=== PATIENT | female | born 1955 | race Hispanic/Latino ===

== ENCOUNTER 2016-07-19 13:20 | Inpatient (IN) | payer MEDICARE ==
[2016-07-19 16:18] LABS: Alanine Aminotransferase 16 units/L (7-56); Albumin 4.3 g/dL (3.9-5); Albumin/Globulin Ratio 1.4 %; Alkaline Phosphatase 102 units/L (35-129); Anion Gap 17 mmol/L; Bilirubin,Total 0.2 mg/dL (0.1-1.2); Blood Urea Nitrogen 10 mg/dL (7-17); Calcium 8.9 mg/dL (8.4-10.2); Carbon Dioxide 26 mmol/L (22-30); Chloride 100.6 mmol/L (98-107); Glucose 96 mg/dL (65-100); Magnesium 2.4 mg/dL (1.7-2.3); Potassium 3.8 mmol/L (3.6-5.0); Sodium 140 mmol/L (137-145); Total Protein 7.4 g/dL (6.3-8.2)
[2016-07-19 16:46] LABS: Basophils % (Auto) 0.3 % (0.0-1.8); Eosinophils % (Auto) 1.5 % (0.0-4.3); Hematocrit 37.4 % (30.3-42.9); Hemoglobin 12.4 gm/dl (10.1-14.3); Mean Corpuscular HGB Conc 33 % (30-34); Mean Corpuscular Hemoglobin 30 pg (28-32); Mean Corpuscular Volume 90 fl (79-97); Platelet Count 299 K/mm3 (140-440); Red Blood Count 4.15 M/mm3 (3.65-5.03); Red Cell Distribution Width 13.3 % (13.2-15.2); White Blood Count 6.6 K/mm3 (4.5-11.0)
[2016-07-19] MEDS ORDERED: NACL 0.9% 1000 ML 1,000 ML IV ONE (22:09)
--- NOTE | 2016-07-19 22:34 | Emergency Department Report ---
ED Altered Mental Status HPI - General Chief Complaint: Altered Mental Status Stated Complaint: CONFUSED/UNABLE TO STAND/WALK/WEAK/FATIGUE Time Seen by Provider: 07/19/16 21:59 Source: family Mode of arrival: Wheelchair Limitations: Altered Mental Status - History of Present Illness Initial Comments: This is a pleasant 60-year-old female who is a history of intense chorea. She has been with same care provider since January. Most of the history comes from the care provider. The patient is able to provide a reasonable history as well though. Care provider indicates that over the last month patient's had a significant decline both in confusion as well as in ataxia and strength in general. She reports decreased oral intake pre-strength again more ataxia, frequent falls. Caregiver feels that she is not able to rest adequately meet the needs of this patient and feels that she needs residential care. Patient's private physician Dr. Rocha, who suggested patient be brought to the ED for evaluation. The patient to me describes no specific pains. When asked why she doesn't eat she states that she is not hungry. He is unaware of the confusion. But has agreed that she has increased difficulty with walking and with strength in general. MD Complaint: confusion, weakness Onset/Timin -: Gradual, month(s) Severity: moderate Consistency of Symptoms: getting worse Context: unknown Associated Symptoms: denies: chest pain, cough, headaches, nausea/vomiting, shortness of breath, diarrhea - Related Data Allergies Allergy/AdvReac Type Severity Reaction Status Date / Time No Known Allergies Allergy Unverified 07/19/16 14:25 ED Review of Systems ROS: Stated complaint: CONFUSED/UNABLE TO STAND/WALK/WEAK/FATIGUE Other details as noted in HPI Comment: per patient and caregiver. Constitutional: weakness. denies: chills, fever Eyes: denies: eye pain, eye discharge, vision change ENT: denies: ear pain, throat pain Respiratory: denies: cough, shortness of breath, wheezing Cardiovascular: denies: chest pain, palpitations Endocrine: no symptoms reported Gastrointestinal: denies: abdominal pain, nausea, diarrhea Genitourinary: denies: urgency, dysuria, discharge Musculoskeletal: denies: back pain, joint swelling, arthralgia Skin: denies: rash, lesions Neurological: weakness, confusion, abnormal gait. denies: headache, paresthesias Psychiatric: denies: anxiety, depression Hematological/Lymphatic: denies: easy bleeding, easy bruising ED Physical Exam - General Limitations: Altered Mental Status General appearance: alert, in no apparent distress, other (very frail appearing) - Head Head exam: Present: atraumatic, normocephalic - Eye Eye exam: Present: normal appearance, PERRL. Absent: scleral icterus - ENT ENT exam: Present: normal orophraynx, mucous membranes moist, other (bruxism) - Neck Neck exam: Present: normal inspection - Respiratory Respiratory exam: Present: normal lung sounds bilaterally. Absent: respiratory distress, wheezes - Cardiovascular Cardiovascular Exam: Present: regular rate, normal rhythm. Absent: systolic murmur, diastolic murmur, rubs, gallop - GI/Abdominal GI/Abdominal exam: Present: soft, normal bowel sounds. Absent: tenderness, guarding, pulsatile mass - Extremities Exam Extremities exam: Present: normal inspection, other (moves all extremities spontaneously in the bed. Is able to perform finger to nose. Is noted to be shaky while she performs this. Requires assistance to stand up at the side of the bed.). Absent: pedal edema, joint swelling, calf tenderness - Back Exam Back exam: Present: normal inspection - Neurological Exam Neurological exam: Present: alert, oriented X3 - Psychiatric Psychiatric exam: Present: normal affect, normal mood, other (mild mental delay. ) - Skin Skin exam: Present: warm, dry, intact, normal color. Absent: rash ED Course Vital Signs 07/19/16 14:25 Temperature 98.4 F Pulse Rate 111 H Respiratory 20 Rate Blood Pressure 108/75 O2 Sat by Pulse 100 Oximetry - Reevaluation(s) Reevaluation #1: 07/20/16 00:23 Labs are noted here as his CT study. I do not see any acute process that would account for the patient's weakness and confusion and decline. I believe more more likely her condition is due to her general medical condition. Specifically her [place]'s disease. I did speak with Dr. Joyner regarding the patient she is agreeable to admission. My personal opinion is the patient will likely need higher level of care while in the hospital she will likely need some further evaluation and physical therapy as well. Reevaluation #2: 07/19/16 22:34 ECG at 1446 demonstrates sinus rhythm at 88 bpm with normal SC and QRS interval. Normal axis. No acute ST or T-wave abnormalities. Normal ECG. - Lab Data Result diagrams: 07/19/16 15:35 07/19/16 15:35 Lab Results 07/19/16 07/19/16 07/19/16 Range/Units 15:11 15:35 15:35 WBC 6.6 (4.5-11.0) K/mm3 RBC 4.15 (3.65-5.03) M/mm3 Hgb 12.4 (10.1-14.3) gm/dl Hct 37.4 (30.3-42.9) % MCV 90 (79-97) fl MCH 30 (28-32) pg MCHC 33 (30-34) % RDW 13.3 (13.2-15.2) % Plt Count 299 (140-440) K/mm3 Lymph % (Auto) 36.6 H (13.4-35.0) % Prentiss % (Auto) 6.1 (0.0-7.3) % Eos % (Auto) 1.5 (0.0-4.3) % Baso % (Auto) 0.3 (0.0-1.8) % Lymph # 2.4 (1.2-5.4) K/mm3 Prentiss # 0.4 (0.0-0.8) K/mm3 Eos # 0.1 (0.0-0.4) K/mm3 Baso # 0.0 (0.0-0.1) K/mm3 Seg Neutrophils % 55.5 (40.0-70.0) % Seg Neutrophils # 3.6 (1.8-7.7) K/mm3 Sodium 140 (137-145) mmol/L Potassium 3.8 (3.6-5.0) mmol/L Chloride 100.6 (98-107) mmol/L Carbon Dioxide 26 (22-30) mmol/L Anion Gap 17 mmol/L BUN 10 (7-17) mg/dL Creatinine 0.5 L (0.7-1.2) mg/dL Estimated GFR > 60 ml/min BUN/Creatinine Ratio 20.00 % Glucose 96 (65-100) mg/dL Lactic Acid (0.7-2.0) mmol/L Calcium 8.9 (8.4-10.2) mg/dL Magnesium 2.4 H (1.7-2.3) mg/dL Total Bilirubin 0.2 (0.1-1.2) mg/dL AST 25 (5-40) units/L ALT 16 (7-56) units/L Alkaline Phosphatase 102 (35-129) units/L Total Protein 7.4 (6.3-8.2) g/dL Albumin 4.3 (3.9-5) g/dL Albumin/Globulin Ratio 1.4 % TSH (0.270-4.200) mlU/mL Salicylates < 0.3 L (2.8-20.0) mg/dL Acetaminophen (10.0-30.0) ug/mL Plasma/Serum Alcohol (0-0.07) gm% 07/19/16 07/19/16 07/19/16 Range/Units 15:35 15:35 15:35 WBC (4.5-11.0) K/mm3 RBC (3.65-5.03) M/mm3 Hgb (10.1-14.3) gm/dl Hct (30.3-42.9) % MCV (79-97) fl MCH (28-32) pg MCHC (30-34) % RDW (13.2-15.2) % Plt Count (140-440) K/mm3 Lymph % (Auto) (13.4-35.0) % Prentiss % (Auto) (0.0-7.3) % Eos % (Auto) (0.0-4.3) % Baso % (Auto) (0.0-1.8) % Lymph # (1.2-5.4) K/mm3 Prentiss # (0.0-0.8) K/mm3 Eos # (0.0-0.4) K/mm3 Baso # (0.0-0.1) K/mm3 Seg Neutrophils % (40.0-70.0) % Seg Neutrophils # (1.8-7.7) K/mm3 Sodium (137-145) mmol/L Potassium (3.6-5.0) mmol/L Chloride (98-107) mmol/L Carbon Dioxide (22-30) mmol/L Anion Gap mmol/L BUN (7-17) mg/dL Creatinine (0.7-1.2) mg/dL Estimated GFR ml/min BUN/Creatinine Ratio % Glucose (65-100) mg/dL Lactic Acid 1.1 (0.7-2.0) mmol/L Calcium (8.4-10.2) mg/dL Magnesium (1.7-2.3) mg/dL Total Bilirubin (0.1-1.2) mg/dL AST (5-40) units/L ALT (7-56) units/L Alkaline Phosphatase (35-129) units/L Total Protein (6.3-8.2) g/dL Albumin (3.9-5) g/dL Albumin/Globulin Ratio % TSH 5.050 H (0.270-4.200) mlU/mL Salicylates (2.8-20.0) mg/dL Acetaminophen < 15.0 (10.0-30.0) ug/mL Plasma/Serum Alcohol (0-0.07) gm% 07/19/16 Range/Units 15:35 WBC (4.5-11.0) K/mm3 RBC (3.65-5.03) M/mm3 Hgb (10.1-14.3) gm/dl Hct (30.3-42.9) % MCV (79-97) fl MCH (28-32) pg MCHC (30-34) % RDW (13.2-15.2) % Plt Count (140-440) K/mm3 Lymph % (Auto) (13.4-35.0) % Prentiss % (Auto) (0.0-7.3) % Eos % (Auto) (0.0-4.3) % Baso % (Auto) (0.0-1.8) % Lymph # (1.2-5.4) K/mm3 Prentiss # (0.0-0.8) K/mm3 Eos # (0.0-0.4) K/mm3 Baso # (0.0-0.1) K/mm3 Seg Neutrophils % (40.0-70.0) % Seg Neutrophils # (1.8-7.7) K/mm3 Sodium (137-145) mmol/L Potassium (3.6-5.0) mmol/L Chloride (98-107) mmol/L Carbon Dioxide (22-30) mmol/L Anion Gap mmol/L BUN (7-17) mg/dL Creatinine (0.7-1.2) mg/dL Estimated GFR ml/min BUN/Creatinine Ratio % Glucose (65-100) mg/dL Lactic Acid (0.7-2.0) mmol/L Calcium (8.4-10.2) mg/dL Magnesium (1.7-2.3) mg/dL Total Bilirubin (0.1-1.2) mg/dL AST (5-40) units/L ALT (7-56) units/L Alkaline Phosphatase (35-129) units/L Total Protein (6.3-8.2) g/dL Albumin (3.9-5) g/dL Albumin/Globulin Ratio % TSH (0.270-4.200) mlU/mL Salicylates (2.8-20.0) mg/dL Acetaminophen (10.0-30.0) ug/mL Plasma/Serum Alcohol < 0.01 (0-0.07) gm% - Radiology Data Radiology results: report reviewed, image reviewed There is evidence of moderate to severe atrophy and moderate gliosis. No acute intracranial abnormalities are seen. Air fluid level visualized right maxillary sinus suggesting acute sinusitis. Critical care attestation.: If time is entered above; I have spent that time in minutes in the direct care of this critically ill patient, excluding procedure time. 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
--- NOTE | 2016-07-19 23:10 | Cat Scan Report ---
FINAL REPORT PROCEDURE: CT HEAD/BRAIN WO CON TECHNIQUE: Computerized tomography of the head was performed without contrast material. HISTORY: confusion COMPARISON: No prior studies are available for comparison. FINDINGS: Brain: There is no evidence of intracranial hemorrhage. No parenchymal hemorrhage is seen. No mass lesions or mass effect is identified. No abnormal extra-axial fluid collections or masses are seen. There is some decreased density seen in the periventricular white matter without mass effect. This is fairly symmetric and does not exhibit any mass effect consistent with gliosis probably on the basis of microvascular disease or white matter changes of aging. Ventricles: The ventricles, sulcal pattern and fissures are prominent consistent with atrophy. Bones: No evidence of acute fracture. Paranasal sinuses: Moderate-sized air-fluid levels seen in the right maxillary sinus suggesting acute sinusitis. Visualized portions of the paranasal sinuses otherwise appear clear. Mastoid air cells: clear IMPRESSION: There is evidence of moderate to severe atrophy and moderate gliosis. No acute intracranial abnormalities are seen. Air-fluid level visualized right maxillary sinus suggesting acute sinusitis.
[2016-07-20 00:21] LABS: Urine Drugs of Abuse Note Disclamer
[2016-07-20 00:28] LABS: Bilirubin,Urine NEG (Negative); Blood,Urine NEG (Negative); Ketones,Urine NEG (Negative); Leukocyte Esterase,Urine NEG (Negative); Mucus,Urine FEW /HPF; Nitrite,Urine NEG (Negative); Protein,Urine <15 mg/dL mg/dL (Negative); RBC,Urine < 1.0 /HPF (0.0-6.0); Urobilinogen,Urine < 2.0 mg/dL (<2.0)
[2016-07-20] MEDS ORDERED: MILK OF MAGNESIA PO PRN (01:19)
[2016-07-20] MEDS ORDERED: DULCOLAX PR PRN (01:19)
[2016-07-20] MEDS ORDERED: TYLENOL PO PRN (01:19)
[2016-07-20] MEDS ORDERED: ZOFRAN IV PRN (01:19)
--- NOTE | 2016-07-20 02:06 | Admit Criteria Form ---
Admission Criteria Documentation: NEUROLOGY GRG Clinical Indications for Admission to Inpatient Care (Place ' X' for any and all applicable criteria): Hospital admission is needed for appropriate care of the patient because of ANY ONE of the following: [ ]I. New-onset or worsening altered mental status remaining after emergency or observation level care (as appropriate) (9)(10)(11) [ ]II. Severe ORE GRADER infections or inflammatory conditions, including ANY ONE of the following(1)(2)(3): [ ]a) Intracranial abscess [ ]b) Spinal abscess or myelitis [ ]c) Tuberculous or other nonbacterial, nonviral ORE GRADER infection(8) [ ]III. Encephalitis(1)(2)(3) [ ]IV. Status epilepticus or repetitive seizures not controlled with emergent treatment [A] (7)(8) [ ]V. Transient alteration in consciousness with high-risk etiology; examples include (12)(13): [ ]a) Cardiovascular source [ ]b) Cataplexy [ ]. Cerebral aneurysm requiring ANY ONE of the following(14): [ ]a) IV antihypertensives or vasoactive agents [ ]b) Sedation and analgesia for suspected leak [ ]c) Need for external ventricular drainage and cerebral perfusion pressure monitoring [ ]d) Emergent evaluation to determine need for surgical clipping or endovascular coiling by interventional radiology. If surgery is required ( Also use Craniotomy, Supratentorial, for Surgery of Bleeding Intracranial Aneurysm (for bleeding aneurysm) or Craniotomy, Supratentorial (for nonbleeding aneurysm) as appropriate. [ ]VII. Altered mental status that is severe or persistent(16) [ ]VIII New-onset severe neurologic findings requiring inpatient care; examples include: [ ]a) Papilledema [ ]b) Cerebral edema [ ]c) Mass effect on imaging [X ]IX. New-onset severe neurologic symptom requiring inpatient care indicated by ANY ONE of the following: [ ]a) Aphasia(15) [ ]b) Weakness (grade 3 or less) [ ]c) Paralysis (eg, hemiplegia) [ ]d) Spasticity(16) [ X]e) Ataxia(17) [ ]f) Amnesia(18) [ ]g) Involuntary movements(19) [ ]h) Vertigo [ ]i) Other severe neurologic symptom not treatable at alternative level of care (eg, observation care) [ ]X. Guillain-[place] syndrome(20) [ ]XI. Myasthenia gravis crisis or inpatient monitoring need as indicated by ANY ONE of the following(21): [ ]a) Inadequate airway protection [ ]b) Respiratory insufficiency requiring intubation or inpatient. monitoring [ ]c) Progressive dysphagia with failure to thrive [ ]d) Intensive treatment (eg, course of plasmapheresis) with inadequate outpatient situation to monitor patients status [ ]XII. Multiple sclerosis or other acute demyelinating disease requiring inpatient care as indicated by ANY ONE of the following (22)(23): [ ]a) Acute severe deterioration requiring inpatient treatment (eg, IV steroids, plasmapheresis, close observation) [ ]b) Acute complication requiring inpatient care (eg, sepsis, severe decubitus, aspiration) [ ]XIII. Intracranial hypertension (eg, pseudotumor cerebri) requiring inpatient care (eg, acute visual loss, inadequate oral intake) (24) [ ]XIV.Parkinson disease requiring inpatient care (Also use Optimal Recovery Care Criteria or General Recovery Criteria as appropriate) indicated by ANY ONE of the following(25): [ ]a) Infection (eg, aspiration pneumonia) not treatable at alternative level of care [ ]b) Volume depletion not responsive to emergency and observation care treatment (as appropriate) [ ]c) Life-threatening agitation or psychotic behavior not treatable on emergency, observation care, or alternative level (eg, residential) basis [ ]d) Severe medication withdrawal effects (eg, freezing, neuroleptic malignant syndrome) not responsive to emergency and observation care treatment (as appropriate) [ ]e) Other severe manifestation not treatable at alternative level of care [ ]XV.Amyotrophic lateral sclerosis with inpatient care needs as indicated by ANY ONE of the following(26): [ ]a) Acute complications requiring inpatient care (Use Optimal Recovery Care Criteria or General Recovery Criteria as appropriate); examples include: [ ]i) Aspiration pneumonia [ ]ii) Sepsis [ ]b) Dehydration or hypovolemia (not responsive to emergency and observation care treatment as appropriate) AND artificial support desired [ ]c) Inadequate airway protection AND artificial support desired [ ]d) Severe ventilatory insufficiency AND artificial support desired [ ]XVI.Severe myopathy, neuropathy, or other neuromuscular disease as indicated by ANY ONE of the following: [ ]a) New-onset severe diffuse weakness (eg, strength 3/5 or less) [ ]b) Severe dysphagia [ ]c) Dyspnea at rest or with minimal exertion (new) [ ]d) Inadequate airway protection [ ]e) Inadequate ventilation as indicated by ANY ONE of the following : [ ]i) Partial pressure of carbon dioxide greater than 44 mm Hg (5.9 kPa) (new) [ ]ii) Reduced peak expiratory flow rate (new) [ ]iii) Vital capacity less than 50% of predicted ( less than 15 mL/kg) [ ]iv) Peak inspiratory force less negative than -30 cm H20 (-2942 Pa) [ ]XVII.Complications of congenital or degenerative disease (eg, infection, seizures, dehydration, injury) not responsive to emergency and observation care treatment (as appropriate ) [C](16)(29)(30) [ ]XVIII.Suspected or confirmed nerve or muscle toxic injury, including ANY ONE of the following: [ ]a) Rhabdomyolysis(31) [ ]b) Botulism(32) [ ]c) Other severe toxin-induced sign or symptom [ ]XIX. Neurologic trauma requiring inpatient treatment (medical) indicated by ANY ONE of the following(33)(34): [ ]a) Vital signs or neurologic signs more frequently than every 4 hours [ ]b) Hyperosmolar therapy [ ]c) Respiratory monitoring [ ]d) Intracranial pressure monitoring and treatment [ ]e) Stabilization and immobilization device placement (eg, braces, body jacket) [ ]f) Intubation & mechanical ventilation for airway protection or therapeutic hyperventilation [ ]g) Other treatment or monitoring needed that requires inpatient level of care [ ]XX.Complications of neurologic devices (eg, ventricular shunt, neurostimulator) requiring ANY ONE of the following(35)(36): [ ]a) IV antibiotics with monitoring while awaiting culture results [ ]b) Monitoring for hydrocephalus [ ]XXI Vasculitis with ANY ONE of the following(4)(5): [ ]a) Altered mental status [ ]b) Psychosis [ ]c) Seizures [ ]XXII. Neurology condition and ALL of the following: [ ]a) Symptom or finding for which emergency and observation care have failed or are not considered appropriate (Use General Criteria: Observation Care as appropriate) [ ]b) Presence of ANY ONE of the following: [ ]i) A General Admission Criteria [ ]ii A Pediatric General Admission Criteria The original [facility] content created by [facility] has been revised. The portions of the content which have been revised are identified through the use of italic text or in bold, and [facility] has neither reviewed nor approved the modified material. All other unmodified content is copyright [facility] Please see references footnoted in the original [facility] edition 2016 Admission Criteria Met: Yes
--- NOTE | 2016-07-20 03:35 | History and Physical Report ---
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 She has deteriorated, as frequent falls, difficulty ambulating Patient denies chest pain, palpitation, shortness of breath, cough, abdominal pain, hematochezia, dysuria, frequency, focal weakness, dysarthria, fever chills , polydipsia polyuria, hot or cold intolerance, easy bruisability, or rash or bleeding from mucosal membrane, rhinorrhea, epistaxis, earache, tinnitus, blurry vision, eye discharge, anxiety, depression. Other review of systems negative PAST SURGICAL HISTORY: Unknown SOCIAL HISTORY: Denies TOBACCO, drug, alcohol FAMILY HISTORY: Hypertension Medications and Allergies Allergies Allergy/AdvReac Type Severity Reaction Status Date / Time No Known Allergies Allergy Verified 07/20/16 01:41 Home Medications Medication Instructions Recorded Confirmed Last Taken Type Benztropine [Cogentin] 1 mg PO DAILY 07/20/16 07/20/16 07/19/16 History Citalopram Hydrobromide 10 mg PO DAILY 07/20/16 07/20/16 07/19/16 History [Citalopram HBr] Megestrol [Megace] 40 mg PO BID 07/20/16 07/20/16 07/19/16 History Olanzapine [OLANZapine] 0.5 mg PO BID 07/20/16 07/20/16 07/19/16 History clonazePAM 0.5 mg PO DAILY 07/20/16 07/20/16 07/19/16 History clonazePAM 1 mg PO HS 07/20/16 07/20/16 07/19/16 History Acetaminophen [Acetaminophen TAB] 650 mg PO Q4H PRN #30 tablet 07/26/16 Unknown Rx Bisacodyl [Dulcolax suppos] 10 mg AR QDAY PRN #30 supp.rect 07/26/16 Unknown Rx Active Meds: Active Medications Acetaminophen (Tylenol) 650 mg PO Q4H PRN PRN Reason: Pain MILD(1-3)/Fever >100.5/FRANKLIN Bisacodyl (Dulcolax) 10 mg AR QDAY PRN PRN Reason: Constipation unrelieved by MOM Enoxaparin Sodium (Lovenox) 40 mg SUB-Q QDAY EUGENIO Magnesium Hydroxide (Milk Of Magnesia) 30 ml PO Q4H PRN PRN Reason: Constipation Ondansetron HCl (Zofran) 4 mg IV Q8H PRN PRN Reason: N/V unrelieved by Reglan Exam - Physical Exam Narrative exam: Gen. appearance: Patient lying in bed, no apparent distress HEENT: Normocephalic, atraumatic, pupils equally round and reactive to light, extraocular movement intact, and no sclericterus,. No JVD or thyromegaly or nodule,neck supple, no carotid bruit ,mucous membranes moist, no exudate or erythema Heart: S1, S2, regular rate and rhythm Lungs: Clear to auscultation bilaterally, breathing comfortable Abdomen: Positive bowel sounds, nontender, nondistended, no organomegaly Extremity: No edema, cyanosis, clubbing Skin: No rash, nodules, warm, dry Neuro: Oriented 3, cranial nerves II-12 intact, speech is fluent, motor and sensory intact - Constitutional Vitals: Temp Pulse Resp BP Pulse Ox 98.4 F 111 H 18 108/75 98 07/19/16 14:25 07/19/16 14:25 07/19/16 22:00 07/19/16 14:25 07/19/16 22:00 Results - Labs CBC & Chem 7: 07/21/16 05:13 07/21/16 05:13 - Imaging and Cardiology CT Scan - head: report reviewed Assessment and Plan Failure to thrive Pierce's disease Admits medicine Consult neurology, physical therapy Consult case management for placement Start DVT prophylaxis
[2016-07-20] MEDS: LOVENOX SUB-Q SCH (09:39)
--- NOTE | 2016-07-20 11:37 | Event Note ---
Date: 07/20/16 Patient seen and examined. This is a follow-up from an admission earlier this morning. We will continue the plan as outlined in H&P.
--- NOTE | 2016-07-20 17:53 | Consultation ---
History of Present Illness Consult date: 07/20/16 Requesting physician: MAT BLOCK Reason for Consult: Kai's Disease Chief complaint: AMS limits direct Hx. 60 YO F Hx HD not currently on meds who was brought to ED by caregiver for failure to thrive. It is unclear how long her deterioration has been ongoing as she has AMS limiting Hx. She apparently has poor PO intake and falls. There are no clear aggravating, relieving or temporal factors. Severity is such to cause concern for deterioration in health. Past History Past Medical History: other ([place]'s Disease) Past Surgical History: No surgical history Social history: Lives alone Family history: no significant family history Medications and Allergies Allergies Allergy/AdvReac Type Severity Reaction Status Date / Time No Known Allergies Allergy Verified 07/20/16 01:41 Home Medications Medication Instructions Recorded Confirmed Last Taken Type Benztropine [Cogentin] 1 mg PO DAILY 07/20/16 07/20/16 07/19/16 History Citalopram Hydrobromide 10 mg PO DAILY 07/20/16 07/20/16 07/19/16 History [Citalopram HBr] Megestrol [Megace] 40 mg PO BID 07/20/16 07/20/16 07/19/16 History Olanzapine [OLANZapine] 0.5 mg PO BID 07/20/16 07/20/16 07/19/16 History clonazePAM 0.5 mg PO DAILY 07/20/16 07/20/16 07/19/16 History clonazePAM 1 mg PO HS 07/20/16 07/20/16 07/19/16 History Active Meds: Active Medications Acetaminophen (Tylenol) 650 mg PO Q4H PRN PRN Reason: Pain MILD(1-3)/Fever >100.5/FRANKLIN Bisacodyl (Dulcolax) 10 mg MA QDAY PRN PRN Reason: Constipation unrelieved by MOM Enoxaparin Sodium (Lovenox) 40 mg SUB-Q QDAY EUGENIO Last Admin: 07/20/16 09:39 Dose: 40 mg Magnesium Hydroxide (Milk Of Magnesia) 30 ml PO Q4H PRN PRN Reason: Constipation Ondansetron HCl (Zofran) 4 mg IV Q8H PRN PRN Reason: N/V unrelieved by Reglan Review of Systems ROS unobtainable: due to mental status Physical Examination - Vital Signs Vital Signs: Vital Signs Temp Pulse Resp BP Pulse Ox 98.4 F 111 H 20 108/75 100 07/19/16 14:25 07/19/16 14:25 07/19/16 14:25 07/19/16 14:25 07/19/16 14:25 - Constitutional General appearance: chronically ill - EENT EENT: Present: ATNC, PERRL, mucous membranes dry, hearing intact - Respiratory Respiratory: Present: chest non-tender, normal breath sounds, no respiratory distress - Cardiovascular Cardiovascular: Present: regular rate Extremities: Present: no peripheral edema bilatateraly, no clubbing, cyanosis, no inflammation, no ischemia or petechiae - Gastrointestinal Gastrointestinal: Present: normoactive bowel sounds, non-distended - Integumentary Integumentary: Present: normal - Neurologic Cranial nerve examination: PERRL, EOMI, VFF, V1/V2/V3 grossly intact, face symmetric, tongue midline, intact, intact shoulder shrug, Intact Vestibulo- ocular r, intact corneal reflex Speech examination: other (dysarthria) Sensorimotor examination: rigidity, chorea Motor examination - right side: 4/5: biceps, triceps, wrist flexion, wrist extension, technical service specialist, hip flexors, knee extensors, dorsiflexion, toe extension (EHL) , plantarflexion Motor examination - left side: 4/5: biceps, triceps, wrist flexion, wrist extension, technical service specialist, hip flexors, knee extensors, dorsiflexion, toe extension (EHL) , plantarflexion Detailed sensory examination: intact, light touch Reflex and gait examination: Babinski's sign Cerebellar examination: ataxia, dysmetria, dysdiadochokinesia - Musculoskeletal Musculoskeletal: Present: no fluid collection, no pain, normal range of motion - Additional Exam Additional Exam: awake, alert, oriented to name, ? 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 She appears to have classic HD symptoms. Neuro exam otherwise nonfocal and CTH nonacute global atrophy/gliosis. I recommend toxic metabolic infectious work up to correct any reversible causes. TSH ekevated but T4 normal. Recs: 1. Will defer further neurologic w/u w/ regard to radiographic imaging-MRI Brain/Spine, EEG or LP @ this time. CTH reviewed and non-acute findings. 2. Check serum Vit B12/Ammonia and correct as necessary 3. Cont Infectious work up/medical management for UTI, PNA, cellulitis, bacteremia, etc. 4. Avoid hyponatremia, hypo/hyper-calcemia, hypo/hyperglycemia, acidosis, hypoxia/hypoxemia, hypercarbia/hypercapnia 5. Avoid institution of any psychoactive medications (e.g. antihistamines, anticholinergics, BZD, hypnotics, opiates) as able unless low doses of low potency antipsychotic needed for behavioral issues complicating medical care 6. Cont home meds-there is no neurologic indication to change 7. We can revisit as needed. 8. Pt can follow up with outpt neurologist as indicated.
[2016-07-21 06:27] LABS: Basophils % (Auto) 0.2 % (0.0-1.8); Eosinophils % (Auto) 3.9 % (0.0-4.3); Hemoglobin 10.7 gm/dl (10.1-14.3); Mean Corpuscular HGB Conc 33 % (30-34); Mean Corpuscular Hemoglobin 30 pg (28-32); Mean Corpuscular Volume 91 fl (79-97); Platelet Count 255 K/mm3 (140-440); Red Blood Count 3.51 M/mm3 (3.65-5.03); Red Cell Distribution Width 13.3 % (13.2-15.2); White Blood Count 5.8 K/mm3 (4.5-11.0)
[2016-07-21 06:46] LABS: Anion Gap 14 mmol/L; Blood Urea Nitrogen 6 mg/dL (7-17); Calcium 8.4 mg/dL (8.4-10.2); Carbon Dioxide 24 mmol/L (22-30); Chloride 108.2 mmol/L (98-107); Glucose 81 mg/dL (65-100); Potassium 3.9 mmol/L (3.6-5.0); Sodium 142 mmol/L (137-145)
[2016-07-21] MEDS: LOVENOX SUB-Q SCH (09:50)
--- NOTE | 2016-07-21 11:50 | Progress Note ---
Assessment and Plan Assessment and plan: 1. Acute encephalopathy. Present on admission. Resolved. 2. Kai's disease. Supportive care. 3. Adult failure to thrive/deconditioning/disability. PT evaluation 4. Disposition. Patient awaiting placement. History Interval history: No new issues overnight. No complaint of chest pain or shortness of breath. Hospitalist Physical - Constitutional Vitals: Temp Pulse Resp BP Pulse Ox 98.9 F 69 20 92/53 95 07/21/16 07:40 07/21/16 07:40 07/21/16 07:40 07/21/16 07:40 07/21/16 08:48 General appearance: Present: no acute distress, well-nourished - EENT Eyes: Present: PERRL, EOM intact ENT: hearing intact, clear oral mucosa, dentition normal - Neck Neck: Present: supple, normal ROM - Respiratory Respiratory effort: normal Respiratory: bilateral: CTA - Cardiovascular Rhythm: regular Heart Sounds: Present: S1 & S2. Absent: gallop, rub - Extremities Extremities: no ischemia, No edema, Full ROM - Abdominal General gastrointestinal: soft, non-tender, non-distended, normal bowel sounds - Integumentary Integumentary: Present: clear, warm, dry - Neurologic Neurologic: CNII-XII intact, moves all extremities Results - Labs CBC & Chem 7: 07/21/16 05:13 07/21/16 05:13 Labs: Laboratory Last Values WBC 5.8 K/mm3 (4.5-11.0) 07/21/16 05:13 RBC 3.51 M/mm3 (3.65-5.03) L 07/21/16 05:13 Hgb 10.7 gm/dl (10.1-14.3) 07/21/16 05:13 Hct 32.0 % (30.3-42.9) 07/21/16 05:13 MCV 91 fl (79-97) 07/21/16 05:13 MCH 30 pg (28-32) 07/21/16 05:13 MCHC 33 % (30-34) 07/21/16 05:13 RDW 13.3 % (13.2-15.2) 07/21/16 05:13 Plt Count 255 K/mm3 (140-440) 07/21/16 05:13 Lymph % (Auto) 48.7 % (13.4-35.0) H 07/21/16 05:13 [place] % (Auto) 7.8 % (0.0-7.3) H 07/21/16 05:13 Eos % (Auto) 3.9 % (0.0-4.3) 07/21/16 05:13 Baso % (Auto) 0.2 % (0.0-1.8) 07/21/16 05:13 Lymph # 2.8 K/mm3 (1.2-5.4) 07/21/16 05:13 [place] # 0.5 K/mm3 (0.0-0.8) 07/21/16 05:13 Eos # 0.2 K/mm3 (0.0-0.4) 07/21/16 05:13 Baso # 0.0 K/mm3 (0.0-0.1) 07/21/16 05:13 Seg Neutrophils % 39.4 % (40.0-70.0) L 07/21/16 05:13 Seg Neutrophils # 2.3 K/mm3 (1.8-7.7) 07/21/16 05:13 Sodium 142 mmol/L (137-145) 07/21/16 05:13 Potassium 3.9 mmol/L (3.6-5.0) 07/21/16 05:13 Chloride 108.2 mmol/L (98-107) H 07/21/16 05:13 Carbon Dioxide 24 mmol/L (22-30) 07/21/16 05:13 Anion Gap 14 mmol/L 07/21/16 05:13 BUN 6 mg/dL (7-17) L 07/21/16 05:13 Creatinine 0.5 mg/dL (0.7-1.2) L 07/21/16 05:13 Estimated GFR > 60 ml/min 07/21/16 05:13 BUN/Creatinine Ratio 12.00 % 07/21/16 05:13 Glucose 81 mg/dL (65-100) 07/21/16 05:13 POC Glucose 82 (70-105) 07/20/16 06:52 Lactic Acid 1.1 mmol/L (0.7-2.0) 07/19/16 15:35 Calcium 8.4 mg/dL (8.4-10.2) 07/21/16 05:13 Magnesium 2.4 mg/dL (1.7-2.3) H 07/19/16 15:35 Total Bilirubin 0.2 mg/dL (0.1-1.2) 07/19/16 15:35 AST 25 units/L (5-40) 07/19/16 15:35 ALT 16 units/L (7-56) 07/19/16 15:35 Alkaline Phosphatase 102 units/L (35-129) 07/19/16 15:35 Ammonia 47.0 umol/L (25-60) 07/20/16 20:40 Total Protein 7.4 g/dL (6.3-8.2) 07/19/16 15:35 Albumin 4.3 g/dL (3.9-5) 07/19/16 15:35 Albumin/Globulin Ratio 1.4 % 07/19/16 15:35 Vitamin B12 483.8 pg/mL (211-911) 07/20/16 20:40 TSH 5.050 mlU/mL (0.270-4.200) H 07/19/16 15:35 Thyroxine (T4) 5.9 ug/dL (4.0-12.0) 07/20/16 08:02 Urine Color Yellow (Yellow) 07/20/16 Unknown Urine Turbidity Clear (Clear) 07/20/16 Unknown Urine pH 5.0 (5.0-7.0) 07/20/16 Unknown Ur Specific [place] 1.013 (1.003-1.030) 07/20/16 Unknown Urine Protein <15 mg/dl mg/dL (Negative) 07/20/16 Unknown Urine Glucose (UA) Neg mg/dL (Negative) 07/20/16 Unknown Urine Ketones Neg mg/dL (Negative) 07/20/16 Unknown Urine Blood Neg (Negative) 07/20/16 Unknown Urine Nitrite Neg (Negative) 07/20/16 Unknown Urine Bilirubin Neg (Negative) 07/20/16 Unknown Urine Urobilinogen < 2.0 mg/dL (<2.0) 07/20/16 Unknown Ur Leukocyte Esterase Neg (Negative) 07/20/16 Unknown Urine WBC (Auto) 0.0 /HPF (0.0-6.0) 07/20/16 Unknown Urine RBC (Auto) < 1.0 /HPF (0.0-6.0) 07/20/16 Unknown Urine Mucus Few /HPF 07/20/16 Unknown Salicylates < 0.3 mg/dL (2.8-20.0) L 07/19/16 15:11 Urine Opiates Screen Presumptive negative 07/20/16 Unknown Urine Methadone Screen Presumptive negative 07/20/16 Unknown Acetaminophen < 15.0 ug/mL (10.0-30.0) 07/19/16 15:35 Ur Barbiturates Screen Presumptive negative 07/20/16 Unknown Ur Phencyclidine Scrn Presumptive negative 07/20/16 Unknown Ur Amphetamines Screen Presumptive negative 07/20/16 Unknown U Benzodiazepines Scrn Presumptive negative 07/20/16 Unknown Urine Cocaine Screen Presumptive negative 07/20/16 Unknown U Marijuana (THC) Screen Presumptive negative 07/20/16 Unknown Drugs of Abuse Note Disclamer 07/20/16 Unknown Plasma/Serum Alcohol < 0.01 gm% (0-0.07) 07/19/16 15:35
--- NOTE | 2016-07-22 11:00 | Progress Note ---
Assessment and Plan Assessment and plan: 1. Acute encephalopathy. Present on admission. Resolved. 2. Kai's disease. Supportive care. PT/OT. 3. Adult failure to thrive/deconditioning/disability. PT evaluation 4. Disposition. Patient awaiting placement. History Interval history: No new issues overnight. No complaint of chest pain or shortness of breath. Hospitalist Physical - Constitutional Vitals: Temp Pulse Resp BP Pulse Ox 98.7 F 67 20 107/54 99 07/21/16 23:54 07/21/16 23:54 07/21/16 23:54 07/21/16 23:54 07/22/16 08:19 General appearance: Present: no acute distress, well-nourished - EENT Eyes: Present: PERRL, EOM intact ENT: hearing intact, clear oral mucosa, dentition normal - Neck Neck: Present: supple, normal ROM - Respiratory Respiratory effort: normal Respiratory: bilateral: CTA - Cardiovascular Rhythm: regular Heart Sounds: Present: S1 & S2. Absent: gallop, rub - Extremities Extremities: no ischemia, No edema, Full ROM - Abdominal General gastrointestinal: soft, non-tender, non-distended, normal bowel sounds - Integumentary Integumentary: Present: clear, warm, dry - Neurologic Neurologic: CNII-XII intact, moves all extremities, other (general weakness) Results - Labs CBC & Chem 7: 07/21/16 05:13 07/21/16 05:13 Labs: Laboratory Last Values WBC 5.8 K/mm3 (4.5-11.0) 07/21/16 05:13 RBC 3.51 M/mm3 (3.65-5.03) L 07/21/16 05:13 Hgb 10.7 gm/dl (10.1-14.3) 07/21/16 05:13 Hct 32.0 % (30.3-42.9) 07/21/16 05:13 MCV 91 fl (79-97) 07/21/16 05:13 MCH 30 pg (28-32) 07/21/16 05:13 MCHC 33 % (30-34) 07/21/16 05:13 RDW 13.3 % (13.2-15.2) 07/21/16 05:13 Plt Count 255 K/mm3 (140-440) 07/21/16 05:13 Lymph % (Auto) 48.7 % (13.4-35.0) H 07/21/16 05:13 [place] % (Auto) 7.8 % (0.0-7.3) H 07/21/16 05:13 Eos % (Auto) 3.9 % (0.0-4.3) 07/21/16 05:13 Baso % (Auto) 0.2 % (0.0-1.8) 07/21/16 05:13 Lymph # 2.8 K/mm3 (1.2-5.4) 07/21/16 05:13 [place] # 0.5 K/mm3 (0.0-0.8) 07/21/16 05:13 Eos # 0.2 K/mm3 (0.0-0.4) 07/21/16 05:13 Baso # 0.0 K/mm3 (0.0-0.1) 07/21/16 05:13 Seg Neutrophils % 39.4 % (40.0-70.0) L 07/21/16 05:13 Seg Neutrophils # 2.3 K/mm3 (1.8-7.7) 07/21/16 05:13 Sodium 142 mmol/L (137-145) 07/21/16 05:13 Potassium 3.9 mmol/L (3.6-5.0) 07/21/16 05:13 Chloride 108.2 mmol/L (98-107) H 07/21/16 05:13 Carbon Dioxide 24 mmol/L (22-30) 07/21/16 05:13 Anion Gap 14 mmol/L 07/21/16 05:13 BUN 6 mg/dL (7-17) L 07/21/16 05:13 Creatinine 0.5 mg/dL (0.7-1.2) L 07/21/16 05:13 Estimated GFR > 60 ml/min 07/21/16 05:13 BUN/Creatinine Ratio 12.00 % 07/21/16 05:13 Glucose 81 mg/dL (65-100) 07/21/16 05:13 POC Glucose 82 (70-105) 07/20/16 06:52 Lactic Acid 1.1 mmol/L (0.7-2.0) 07/19/16 15:35 Calcium 8.4 mg/dL (8.4-10.2) 07/21/16 05:13 Magnesium 2.4 mg/dL (1.7-2.3) H 07/19/16 15:35 Total Bilirubin 0.2 mg/dL (0.1-1.2) 07/19/16 15:35 AST 25 units/L (5-40) 07/19/16 15:35 ALT 16 units/L (7-56) 07/19/16 15:35 Alkaline Phosphatase 102 units/L (35-129) 07/19/16 15:35 Ammonia 47.0 umol/L (25-60) 07/20/16 20:40 Total Protein 7.4 g/dL (6.3-8.2) 07/19/16 15:35 Albumin 4.3 g/dL (3.9-5) 07/19/16 15:35 Albumin/Globulin Ratio 1.4 % 07/19/16 15:35 Vitamin B12 483.8 pg/mL (211-911) 07/20/16 20:40 TSH 5.050 mlU/mL (0.270-4.200) H 07/19/16 15:35 Thyroxine (T4) 5.9 ug/dL (4.0-12.0) 07/20/16 08:02 Urine Color Yellow (Yellow) 07/20/16 Unknown Urine Turbidity Clear (Clear) 07/20/16 Unknown Urine pH 5.0 (5.0-7.0) 07/20/16 Unknown Ur Specific [place] 1.013 (1.003-1.030) 07/20/16 Unknown Urine Protein <15 mg/dl mg/dL (Negative) 07/20/16 Unknown Urine Glucose (UA) Neg mg/dL (Negative) 07/20/16 Unknown Urine Ketones Neg mg/dL (Negative) 07/20/16 Unknown Urine Blood Neg (Negative) 07/20/16 Unknown Urine Nitrite Neg (Negative) 07/20/16 Unknown Urine Bilirubin Neg (Negative) 07/20/16 Unknown Urine Urobilinogen < 2.0 mg/dL (<2.0) 07/20/16 Unknown Ur Leukocyte Esterase Neg (Negative) 07/20/16 Unknown Urine WBC (Auto) 0.0 /HPF (0.0-6.0) 07/20/16 Unknown Urine RBC (Auto) < 1.0 /HPF (0.0-6.0) 07/20/16 Unknown Urine Mucus Few /HPF 07/20/16 Unknown Salicylates < 0.3 mg/dL (2.8-20.0) L 07/19/16 15:11 Urine Opiates Screen Presumptive negative 07/20/16 Unknown Urine Methadone Screen Presumptive negative 07/20/16 Unknown Acetaminophen < 15.0 ug/mL (10.0-30.0) 07/19/16 15:35 Ur Barbiturates Screen Presumptive negative 07/20/16 Unknown Ur Phencyclidine Scrn Presumptive negative 07/20/16 Unknown Ur Amphetamines Screen Presumptive negative 07/20/16 Unknown U Benzodiazepines Scrn Presumptive negative 07/20/16 Unknown Urine Cocaine Screen Presumptive negative 07/20/16 Unknown U Marijuana (THC) Screen Presumptive negative 07/20/16 Unknown Drugs of Abuse Note Disclamer 07/20/16 Unknown Plasma/Serum Alcohol < 0.01 gm% (0-0.07) 07/19/16 15:35
[2016-07-22] MEDS: LOVENOX SUB-Q SCH (12:21)
--- NOTE | 2016-07-23 10:42 | Progress Note ---
Assessment and Plan Assessment and plan: 1. Acute encephalopathy. Present on admission. Resolved. 2. Kai's disease. Supportive care. PT/OT. 3. Adult failure to thrive/deconditioning/disability. PT evaluation 4. Disposition. Patient awaiting placement. History Interval history: No new issues overnight. No complaint of chest pain or shortness of breath. Hospitalist Physical - Constitutional Vitals: Temp Pulse Resp BP Pulse Ox 98.1 F 72 12 98/56 96 07/23/16 07:39 07/23/16 07:39 07/23/16 07:39 07/23/16 07:39 07/23/16 07:39 General appearance: Present: no acute distress, well-nourished - EENT Eyes: Present: PERRL, EOM intact ENT: hearing intact, clear oral mucosa, dentition normal - Neck Neck: Present: supple, normal ROM - Respiratory Respiratory effort: normal Respiratory: bilateral: CTA - Cardiovascular Rhythm: regular Heart Sounds: Present: S1 & S2. Absent: gallop, rub - Extremities Extremities: no ischemia, No edema, Full ROM - Abdominal General gastrointestinal: soft, non-tender, non-distended, normal bowel sounds - Integumentary Integumentary: Present: clear, warm, dry - Neurologic Neurologic: CNII-XII intact, other (generalized weakness) Results - Labs CBC & Chem 7: 07/21/16 05:13 07/21/16 05:13 Labs: Laboratory Last Values WBC 5.8 K/mm3 (4.5-11.0) 07/21/16 05:13 RBC 3.51 M/mm3 (3.65-5.03) L 07/21/16 05:13 Hgb 10.7 gm/dl (10.1-14.3) 07/21/16 05:13 Hct 32.0 % (30.3-42.9) 07/21/16 05:13 MCV 91 fl (79-97) 07/21/16 05:13 MCH 30 pg (28-32) 07/21/16 05:13 MCHC 33 % (30-34) 07/21/16 05:13 RDW 13.3 % (13.2-15.2) 07/21/16 05:13 Plt Count 255 K/mm3 (140-440) 07/21/16 05:13 Lymph % (Auto) 48.7 % (13.4-35.0) H 07/21/16 05:13 [place] % (Auto) 7.8 % (0.0-7.3) H 07/21/16 05:13 Eos % (Auto) 3.9 % (0.0-4.3) 07/21/16 05:13 Baso % (Auto) 0.2 % (0.0-1.8) 07/21/16 05:13 Lymph # 2.8 K/mm3 (1.2-5.4) 07/21/16 05:13 [place] # 0.5 K/mm3 (0.0-0.8) 07/21/16 05:13 Eos # 0.2 K/mm3 (0.0-0.4) 07/21/16 05:13 Baso # 0.0 K/mm3 (0.0-0.1) 07/21/16 05:13 Seg Neutrophils % 39.4 % (40.0-70.0) L 07/21/16 05:13 Seg Neutrophils # 2.3 K/mm3 (1.8-7.7) 07/21/16 05:13 Sodium 142 mmol/L (137-145) 07/21/16 05:13 Potassium 3.9 mmol/L (3.6-5.0) 07/21/16 05:13 Chloride 108.2 mmol/L (98-107) H 07/21/16 05:13 Carbon Dioxide 24 mmol/L (22-30) 07/21/16 05:13 Anion Gap 14 mmol/L 07/21/16 05:13 BUN 6 mg/dL (7-17) L 07/21/16 05:13 Creatinine 0.5 mg/dL (0.7-1.2) L 07/21/16 05:13 Estimated GFR > 60 ml/min 07/21/16 05:13 BUN/Creatinine Ratio 12.00 % 07/21/16 05:13 Glucose 81 mg/dL (65-100) 07/21/16 05:13 POC Glucose 82 (70-105) 07/20/16 06:52 Lactic Acid 1.1 mmol/L (0.7-2.0) 07/19/16 15:35 Calcium 8.4 mg/dL (8.4-10.2) 07/21/16 05:13 Magnesium 2.4 mg/dL (1.7-2.3) H 07/19/16 15:35 Total Bilirubin 0.2 mg/dL (0.1-1.2) 07/19/16 15:35 AST 25 units/L (5-40) 07/19/16 15:35 ALT 16 units/L (7-56) 07/19/16 15:35 Alkaline Phosphatase 102 units/L (35-129) 07/19/16 15:35 Ammonia 47.0 umol/L (25-60) 07/20/16 20:40 Total Protein 7.4 g/dL (6.3-8.2) 07/19/16 15:35 Albumin 4.3 g/dL (3.9-5) 07/19/16 15:35 Albumin/Globulin Ratio 1.4 % 07/19/16 15:35 Vitamin B12 483.8 pg/mL (211-911) 07/20/16 20:40 TSH 5.050 mlU/mL (0.270-4.200) H 07/19/16 15:35 Thyroxine (T4) 5.9 ug/dL (4.0-12.0) 07/20/16 08:02 Urine Color Yellow (Yellow) 07/20/16 Unknown Urine Turbidity Clear (Clear) 07/20/16 Unknown Urine pH 5.0 (5.0-7.0) 07/20/16 Unknown Ur Specific [place] 1.013 (1.003-1.030) 07/20/16 Unknown Urine Protein <15 mg/dl mg/dL (Negative) 07/20/16 Unknown Urine Glucose (UA) Neg mg/dL (Negative) 07/20/16 Unknown Urine Ketones Neg mg/dL (Negative) 07/20/16 Unknown Urine Blood Neg (Negative) 07/20/16 Unknown Urine Nitrite Neg (Negative) 07/20/16 Unknown Urine Bilirubin Neg (Negative) 07/20/16 Unknown Urine Urobilinogen < 2.0 mg/dL (<2.0) 07/20/16 Unknown Ur Leukocyte Esterase Neg (Negative) 07/20/16 Unknown Urine WBC (Auto) 0.0 /HPF (0.0-6.0) 07/20/16 Unknown Urine RBC (Auto) < 1.0 /HPF (0.0-6.0) 07/20/16 Unknown Urine Mucus Few /HPF 07/20/16 Unknown Salicylates < 0.3 mg/dL (2.8-20.0) L 07/19/16 15:11 Urine Opiates Screen Presumptive negative 07/20/16 Unknown Urine Methadone Screen Presumptive negative 07/20/16 Unknown Acetaminophen < 15.0 ug/mL (10.0-30.0) 07/19/16 15:35 Ur Barbiturates Screen Presumptive negative 07/20/16 Unknown Ur Phencyclidine Scrn Presumptive negative 07/20/16 Unknown Ur Amphetamines Screen Presumptive negative 07/20/16 Unknown U Benzodiazepines Scrn Presumptive negative 07/20/16 Unknown Urine Cocaine Screen Presumptive negative 07/20/16 Unknown U Marijuana (THC) Screen Presumptive negative 07/20/16 Unknown Drugs of Abuse Note Disclamer 07/20/16 Unknown Plasma/Serum Alcohol < 0.01 gm% (0-0.07) 07/19/16 15:35
[2016-07-23] MEDS: LOVENOX SUB-Q SCH (11:06)
[2016-07-24] MEDS: LOVENOX SUB-Q SCH (10:45)
--- NOTE | 2016-07-24 10:59 | Progress Note ---
Assessment and Plan Assessment and plan: 1. Acute encephalopathy. Present on admission. Resolved. 2. Kai's disease. Supportive care. PT/OT. 3. Adult failure to thrive/deconditioning/disability. PT evaluation 4. Disposition. Patient awaiting placement. History Interval history: No new issues overnight. No complaint of chest pain or shortness of breath. Hospitalist Physical - Constitutional Vitals: Temp Pulse Resp BP Pulse Ox 98.8 F 62 16 102/54 97 07/24/16 00:32 07/24/16 00:32 07/24/16 00:32 07/24/16 00:32 07/24/16 00:32 General appearance: Present: no acute distress, well-nourished - EENT Eyes: Present: PERRL, EOM intact ENT: hearing intact, clear oral mucosa, dentition normal - Neck Neck: Present: supple, normal ROM - Respiratory Respiratory effort: normal Respiratory: bilateral: CTA - Cardiovascular Rhythm: regular Heart Sounds: Present: S1 & S2. Absent: gallop, rub - Extremities Extremities: no ischemia, No edema, Full ROM - Abdominal General gastrointestinal: soft, non-tender, non-distended, normal bowel sounds - Integumentary Integumentary: Present: clear, warm, dry - Neurologic Neurologic: CNII-XII intact, moves all extremities, other (general weakness) Results - Labs CBC & Chem 7: 07/21/16 05:13 07/21/16 05:13 Labs: Laboratory Last Values WBC 5.8 K/mm3 (4.5-11.0) 07/21/16 05:13 RBC 3.51 M/mm3 (3.65-5.03) L 07/21/16 05:13 Hgb 10.7 gm/dl (10.1-14.3) 07/21/16 05:13 Hct 32.0 % (30.3-42.9) 07/21/16 05:13 MCV 91 fl (79-97) 07/21/16 05:13 MCH 30 pg (28-32) 07/21/16 05:13 MCHC 33 % (30-34) 07/21/16 05:13 RDW 13.3 % (13.2-15.2) 07/21/16 05:13 Plt Count 255 K/mm3 (140-440) 07/21/16 05:13 Lymph % (Auto) 48.7 % (13.4-35.0) H 07/21/16 05:13 [place] % (Auto) 7.8 % (0.0-7.3) H 07/21/16 05:13 Eos % (Auto) 3.9 % (0.0-4.3) 07/21/16 05:13 Baso % (Auto) 0.2 % (0.0-1.8) 07/21/16 05:13 Lymph # 2.8 K/mm3 (1.2-5.4) 07/21/16 05:13 [place] # 0.5 K/mm3 (0.0-0.8) 07/21/16 05:13 Eos # 0.2 K/mm3 (0.0-0.4) 07/21/16 05:13 Baso # 0.0 K/mm3 (0.0-0.1) 07/21/16 05:13 Seg Neutrophils % 39.4 % (40.0-70.0) L 07/21/16 05:13 Seg Neutrophils # 2.3 K/mm3 (1.8-7.7) 07/21/16 05:13 Sodium 142 mmol/L (137-145) 07/21/16 05:13 Potassium 3.9 mmol/L (3.6-5.0) 07/21/16 05:13 Chloride 108.2 mmol/L (98-107) H 07/21/16 05:13 Carbon Dioxide 24 mmol/L (22-30) 07/21/16 05:13 Anion Gap 14 mmol/L 07/21/16 05:13 BUN 6 mg/dL (7-17) L 07/21/16 05:13 Creatinine 0.5 mg/dL (0.7-1.2) L 07/21/16 05:13 Estimated GFR > 60 ml/min 07/21/16 05:13 BUN/Creatinine Ratio 12.00 % 07/21/16 05:13 Glucose 81 mg/dL (65-100) 07/21/16 05:13 POC Glucose 103 (70-105) 07/24/16 06:18 Lactic Acid 1.1 mmol/L (0.7-2.0) 07/19/16 15:35 Calcium 8.4 mg/dL (8.4-10.2) 07/21/16 05:13 Magnesium 2.4 mg/dL (1.7-2.3) H 07/19/16 15:35 Total Bilirubin 0.2 mg/dL (0.1-1.2) 07/19/16 15:35 AST 25 units/L (5-40) 07/19/16 15:35 ALT 16 units/L (7-56) 07/19/16 15:35 Alkaline Phosphatase 102 units/L (35-129) 07/19/16 15:35 Ammonia 47.0 umol/L (25-60) 07/20/16 20:40 Total Protein 7.4 g/dL (6.3-8.2) 07/19/16 15:35 Albumin 4.3 g/dL (3.9-5) 07/19/16 15:35 Albumin/Globulin Ratio 1.4 % 07/19/16 15:35 Vitamin B12 483.8 pg/mL (211-911) 07/20/16 20:40 TSH 5.050 mlU/mL (0.270-4.200) H 07/19/16 15:35 Thyroxine (T4) 5.9 ug/dL (4.0-12.0) 07/20/16 08:02 Urine Color Yellow (Yellow) 07/20/16 Unknown Urine Turbidity Clear (Clear) 07/20/16 Unknown Urine pH 5.0 (5.0-7.0) 07/20/16 Unknown Ur Specific [place] 1.013 (1.003-1.030) 07/20/16 Unknown Urine Protein <15 mg/dl mg/dL (Negative) 07/20/16 Unknown Urine Glucose (UA) Neg mg/dL (Negative) 07/20/16 Unknown Urine Ketones Neg mg/dL (Negative) 07/20/16 Unknown Urine Blood Neg (Negative) 07/20/16 Unknown Urine Nitrite Neg (Negative) 07/20/16 Unknown Urine Bilirubin Neg (Negative) 07/20/16 Unknown Urine Urobilinogen < 2.0 mg/dL (<2.0) 07/20/16 Unknown Ur Leukocyte Esterase Neg (Negative) 07/20/16 Unknown Urine WBC (Auto) 0.0 /HPF (0.0-6.0) 07/20/16 Unknown Urine RBC (Auto) < 1.0 /HPF (0.0-6.0) 07/20/16 Unknown Urine Mucus Few /HPF 07/20/16 Unknown Salicylates < 0.3 mg/dL (2.8-20.0) L 07/19/16 15:11 Urine Opiates Screen Presumptive negative 07/20/16 Unknown Urine Methadone Screen Presumptive negative 07/20/16 Unknown Acetaminophen < 15.0 ug/mL (10.0-30.0) 07/19/16 15:35 Ur Barbiturates Screen Presumptive negative 07/20/16 Unknown Ur Phencyclidine Scrn Presumptive negative 07/20/16 Unknown Ur Amphetamines Screen Presumptive negative 07/20/16 Unknown U Benzodiazepines Scrn Presumptive negative 07/20/16 Unknown Urine Cocaine Screen Presumptive negative 07/20/16 Unknown U Marijuana (THC) Screen Presumptive negative 07/20/16 Unknown Drugs of Abuse Note Disclamer 07/20/16 Unknown Plasma/Serum Alcohol < 0.01 gm% (0-0.07) 07/19/16 15:35
[2016-07-25] MEDS: LOVENOX SUB-Q SCH (10:07)
--- NOTE | 2016-07-25 11:09 | Progress Note ---
Assessment and Plan Assessment and plan: 1. Acute encephalopathy. Present on admission. Resolved. 2. Kai's disease. Supportive care. PT/OT. 3. Adult failure to thrive/deconditioning/disability. PT evaluation 4. Disposition. Patient awaiting placement. History Interval history: No new issues overnight. No complaint of chest pain or shortness of breath. Patient eating breakfast with assistance from the nurse Hospitalist Physical - Constitutional Vitals: Temp Pulse Resp BP Pulse Ox 100.4 F H 98 H 20 111/57 97 07/25/16 08:47 07/25/16 08:47 07/25/16 08:47 07/25/16 08:47 07/25/16 08:47 General appearance: Present: no acute distress, well-nourished - EENT Eyes: Present: PERRL, EOM intact ENT: hearing intact, clear oral mucosa, dentition normal - Neck Neck: Present: supple, normal ROM - Respiratory Respiratory effort: normal Respiratory: bilateral: CTA - Cardiovascular Rhythm: regular Heart Sounds: Present: S1 & S2. Absent: gallop, rub - Extremities Extremities: no ischemia, No edema, Full ROM - Abdominal General gastrointestinal: soft, non-tender, non-distended, normal bowel sounds - Integumentary Integumentary: Present: clear, warm, dry - Neurologic Neurologic: CNII-XII intact, moves all extremities Results - Labs CBC & Chem 7: 07/21/16 05:13 07/21/16 05:13 Labs: Laboratory Last Values WBC 5.8 K/mm3 (4.5-11.0) 07/21/16 05:13 RBC 3.51 M/mm3 (3.65-5.03) L 07/21/16 05:13 Hgb 10.7 gm/dl (10.1-14.3) 07/21/16 05:13 Hct 32.0 % (30.3-42.9) 07/21/16 05:13 MCV 91 fl (79-97) 07/21/16 05:13 MCH 30 pg (28-32) 07/21/16 05:13 MCHC 33 % (30-34) 07/21/16 05:13 RDW 13.3 % (13.2-15.2) 07/21/16 05:13 Plt Count 255 K/mm3 (140-440) 07/21/16 05:13 Lymph % (Auto) 48.7 % (13.4-35.0) H 07/21/16 05:13 [place] % (Auto) 7.8 % (0.0-7.3) H 07/21/16 05:13 Eos % (Auto) 3.9 % (0.0-4.3) 07/21/16 05:13 Baso % (Auto) 0.2 % (0.0-1.8) 07/21/16 05:13 Lymph # 2.8 K/mm3 (1.2-5.4) 07/21/16 05:13 [place] # 0.5 K/mm3 (0.0-0.8) 07/21/16 05:13 Eos # 0.2 K/mm3 (0.0-0.4) 07/21/16 05:13 Baso # 0.0 K/mm3 (0.0-0.1) 07/21/16 05:13 Seg Neutrophils % 39.4 % (40.0-70.0) L 07/21/16 05:13 Seg Neutrophils # 2.3 K/mm3 (1.8-7.7) 07/21/16 05:13 Sodium 142 mmol/L (137-145) 07/21/16 05:13 Potassium 3.9 mmol/L (3.6-5.0) 07/21/16 05:13 Chloride 108.2 mmol/L (98-107) H 07/21/16 05:13 Carbon Dioxide 24 mmol/L (22-30) 07/21/16 05:13 Anion Gap 14 mmol/L 07/21/16 05:13 BUN 6 mg/dL (7-17) L 07/21/16 05:13 Creatinine 0.5 mg/dL (0.7-1.2) L 07/21/16 05:13 Estimated GFR > 60 ml/min 07/21/16 05:13 BUN/Creatinine Ratio 12.00 % 07/21/16 05:13 Glucose 81 mg/dL (65-100) 07/21/16 05:13 POC Glucose 103 (70-105) 07/24/16 06:18 Lactic Acid 1.1 mmol/L (0.7-2.0) 07/19/16 15:35 Calcium 8.4 mg/dL (8.4-10.2) 07/21/16 05:13 Magnesium 2.4 mg/dL (1.7-2.3) H 07/19/16 15:35 Total Bilirubin 0.2 mg/dL (0.1-1.2) 07/19/16 15:35 AST 25 units/L (5-40) 07/19/16 15:35 ALT 16 units/L (7-56) 07/19/16 15:35 Alkaline Phosphatase 102 units/L (35-129) 07/19/16 15:35 Ammonia 47.0 umol/L (25-60) 07/20/16 20:40 Total Protein 7.4 g/dL (6.3-8.2) 07/19/16 15:35 Albumin 4.3 g/dL (3.9-5) 07/19/16 15:35 Albumin/Globulin Ratio 1.4 % 07/19/16 15:35 Vitamin B12 483.8 pg/mL (211-911) 07/20/16 20:40 TSH 5.050 mlU/mL (0.270-4.200) H 07/19/16 15:35 Thyroxine (T4) 5.9 ug/dL (4.0-12.0) 07/20/16 08:02 Urine Color Yellow (Yellow) 07/20/16 Unknown Urine Turbidity Clear (Clear) 07/20/16 Unknown Urine pH 5.0 (5.0-7.0) 07/20/16 Unknown Ur Specific [place] 1.013 (1.003-1.030) 07/20/16 Unknown Urine Protein <15 mg/dl mg/dL (Negative) 07/20/16 Unknown Urine Glucose (UA) Neg mg/dL (Negative) 07/20/16 Unknown Urine Ketones Neg mg/dL (Negative) 07/20/16 Unknown Urine Blood Neg (Negative) 07/20/16 Unknown Urine Nitrite Neg (Negative) 07/20/16 Unknown Urine Bilirubin Neg (Negative) 07/20/16 Unknown Urine Urobilinogen < 2.0 mg/dL (<2.0) 07/20/16 Unknown Ur Leukocyte Esterase Neg (Negative) 07/20/16 Unknown Urine WBC (Auto) 0.0 /HPF (0.0-6.0) 07/20/16 Unknown Urine RBC (Auto) < 1.0 /HPF (0.0-6.0) 07/20/16 Unknown Urine Mucus Few /HPF 07/20/16 Unknown Salicylates < 0.3 mg/dL (2.8-20.0) L 07/19/16 15:11 Urine Opiates Screen Presumptive negative 07/20/16 Unknown Urine Methadone Screen Presumptive negative 07/20/16 Unknown Acetaminophen < 15.0 ug/mL (10.0-30.0) 07/19/16 15:35 Ur Barbiturates Screen Presumptive negative 07/20/16 Unknown Ur Phencyclidine Scrn Presumptive negative 07/20/16 Unknown Ur Amphetamines Screen Presumptive negative 07/20/16 Unknown U Benzodiazepines Scrn Presumptive negative 07/20/16 Unknown Urine Cocaine Screen Presumptive negative 07/20/16 Unknown U Marijuana (THC) Screen Presumptive negative 07/20/16 Unknown Drugs of Abuse Note Disclamer 07/20/16 Unknown Plasma/Serum Alcohol < 0.01 gm% (0-0.07) 07/19/16 15:35
[2016-07-26] MEDS: LOVENOX SUB-Q SCH (10:16)
--- NOTE | 2016-07-26 10:16 | Progress Note ---
Assessment and Plan Assessment and plan: 1. Acute encephalopathy. Present on admission. Resolved. 2. Kai's disease. Supportive care. PT/OT. 3. Adult failure to thrive/deconditioning/debility. PT evaluation 4. Disposition. Patient awaiting placement. 5. DVT prophylaxis. Lovenox daily. History Interval history: No new issues overnight. No complaint of chest pain or shortness of breath. Patient eating breakfast with assistance from the nurse Hospitalist Physical - Constitutional Vitals: Temp Pulse Resp BP Pulse Ox 99.0 F 91 H 20 104/59 94 07/26/16 08:10 07/26/16 08:10 07/26/16 08:10 07/26/16 08:10 07/26/16 08:10 General appearance: Present: no acute distress, well-nourished - EENT Eyes: Present: PERRL, EOM intact ENT: hearing intact, clear oral mucosa, dentition normal - Neck Neck: Present: supple, normal ROM - Respiratory Respiratory effort: normal Respiratory: bilateral: CTA - Cardiovascular Rhythm: regular Heart Sounds: Present: S1 & S2. Absent: gallop, rub - Extremities Extremities: no ischemia, No edema, Full ROM - Abdominal General gastrointestinal: soft, non-tender, non-distended, normal bowel sounds - Integumentary Integumentary: Present: clear, warm, dry - Neurologic Neurologic: CNII-XII intact, moves all extremities Results - Labs CBC & Chem 7: 07/21/16 05:13 07/21/16 05:13 Labs: Laboratory Last Values WBC 5.8 K/mm3 (4.5-11.0) 07/21/16 05:13 RBC 3.51 M/mm3 (3.65-5.03) L 07/21/16 05:13 Hgb 10.7 gm/dl (10.1-14.3) 07/21/16 05:13 Hct 32.0 % (30.3-42.9) 07/21/16 05:13 MCV 91 fl (79-97) 07/21/16 05:13 MCH 30 pg (28-32) 07/21/16 05:13 MCHC 33 % (30-34) 07/21/16 05:13 RDW 13.3 % (13.2-15.2) 07/21/16 05:13 Plt Count 255 K/mm3 (140-440) 07/21/16 05:13 Lymph % (Auto) 48.7 % (13.4-35.0) H 07/21/16 05:13 [place] % (Auto) 7.8 % (0.0-7.3) H 07/21/16 05:13 Eos % (Auto) 3.9 % (0.0-4.3) 07/21/16 05:13 Baso % (Auto) 0.2 % (0.0-1.8) 07/21/16 05:13 Lymph # 2.8 K/mm3 (1.2-5.4) 07/21/16 05:13 [place] # 0.5 K/mm3 (0.0-0.8) 07/21/16 05:13 Eos # 0.2 K/mm3 (0.0-0.4) 07/21/16 05:13 Baso # 0.0 K/mm3 (0.0-0.1) 07/21/16 05:13 Seg Neutrophils % 39.4 % (40.0-70.0) L 07/21/16 05:13 Seg Neutrophils # 2.3 K/mm3 (1.8-7.7) 07/21/16 05:13 Sodium 142 mmol/L (137-145) 07/21/16 05:13 Potassium 3.9 mmol/L (3.6-5.0) 07/21/16 05:13 Chloride 108.2 mmol/L (98-107) H 07/21/16 05:13 Carbon Dioxide 24 mmol/L (22-30) 07/21/16 05:13 Anion Gap 14 mmol/L 07/21/16 05:13 BUN 6 mg/dL (7-17) L 07/21/16 05:13 Creatinine 0.5 mg/dL (0.7-1.2) L 07/21/16 05:13 Estimated GFR > 60 ml/min 07/21/16 05:13 BUN/Creatinine Ratio 12.00 % 07/21/16 05:13 Glucose 81 mg/dL (65-100) 07/21/16 05:13 POC Glucose 102 (70-105) 07/26/16 06:23 Lactic Acid 1.1 mmol/L (0.7-2.0) 07/19/16 15:35 Calcium 8.4 mg/dL (8.4-10.2) 07/21/16 05:13 Magnesium 2.4 mg/dL (1.7-2.3) H 07/19/16 15:35 Total Bilirubin 0.2 mg/dL (0.1-1.2) 07/19/16 15:35 AST 25 units/L (5-40) 07/19/16 15:35 ALT 16 units/L (7-56) 07/19/16 15:35 Alkaline Phosphatase 102 units/L (35-129) 07/19/16 15:35 Ammonia 47.0 umol/L (25-60) 07/20/16 20:40 Total Protein 7.4 g/dL (6.3-8.2) 07/19/16 15:35 Albumin 4.3 g/dL (3.9-5) 07/19/16 15:35 Albumin/Globulin Ratio 1.4 % 07/19/16 15:35 Vitamin B12 483.8 pg/mL (211-911) 07/20/16 20:40 TSH 5.050 mlU/mL (0.270-4.200) H 07/19/16 15:35 Thyroxine (T4) 5.9 ug/dL (4.0-12.0) 07/20/16 08:02 Urine Color Yellow (Yellow) 07/20/16 Unknown Urine Turbidity Clear (Clear) 07/20/16 Unknown Urine pH 5.0 (5.0-7.0) 07/20/16 Unknown Ur Specific [place] 1.013 (1.003-1.030) 07/20/16 Unknown Urine Protein <15 mg/dl mg/dL (Negative) 07/20/16 Unknown Urine Glucose (UA) Neg mg/dL (Negative) 07/20/16 Unknown Urine Ketones Neg mg/dL (Negative) 07/20/16 Unknown Urine Blood Neg (Negative) 07/20/16 Unknown Urine Nitrite Neg (Negative) 07/20/16 Unknown Urine Bilirubin Neg (Negative) 07/20/16 Unknown Urine Urobilinogen < 2.0 mg/dL (<2.0) 07/20/16 Unknown Ur Leukocyte Esterase Neg (Negative) 07/20/16 Unknown Urine WBC (Auto) 0.0 /HPF (0.0-6.0) 07/20/16 Unknown Urine RBC (Auto) < 1.0 /HPF (0.0-6.0) 07/20/16 Unknown Urine Mucus Few /HPF 07/20/16 Unknown Salicylates < 0.3 mg/dL (2.8-20.0) L 07/19/16 15:11 Urine Opiates Screen Presumptive negative 07/20/16 Unknown Urine Methadone Screen Presumptive negative 07/20/16 Unknown Acetaminophen < 15.0 ug/mL (10.0-30.0) 07/19/16 15:35 Ur Barbiturates Screen Presumptive negative 07/20/16 Unknown Ur Phencyclidine Scrn Presumptive negative 07/20/16 Unknown Ur Amphetamines Screen Presumptive negative 07/20/16 Unknown U Benzodiazepines Scrn Presumptive negative 07/20/16 Unknown Urine Cocaine Screen Presumptive negative 07/20/16 Unknown U Marijuana (THC) Screen Presumptive negative 07/20/16 Unknown Drugs of Abuse Note Disclamer 07/20/16 Unknown Plasma/Serum Alcohol < 0.01 gm% (0-0.07) 07/19/16 15:35
--- NOTE | 2016-07-26 12:25 | Discharge Summary ---
Providers - Providers Date of Admission: 07/20/16 01:19 Date of discharge: 07/26/16 Attending physician: HOLLY ZAZUETA 07/20/16 03:26 Physical Therapy Evaluation and Treat [CONS] Routine Comment: Reason For Exam: frequent fall 07/20/16 12:45 Consult to Case Management [CONS] Routine Services Needed at Discharge: [employer] Notified:: carolyn Andrew Physician Instructions: discharge planning 07/21/16 12:41 Speech Therapy Evaluation and Treat [CONS] Routine Reason For Exam: evaluate swallowing Primary care physician: RODRIGUEZ SANTIAGO Hospitalization Reason for admission: failure to thrive Condition: Stable Hospital course: This is a 60-year-old female with history of Kai's disease who was brought to the emergency department by caregiver with failure to thrive. It is unclear of how long her deterioration/symptoms have been ongoing because patient is unable to give any history. Patient reportedly has been with very poor by mouth intake and frequent falls. Patient was evaluated by neurology who recommended for a minute of any further workup with regards to radiographic imaging such as MRI of the brain or spine, EEG or lumbar puncture. CT scan of the head was negative. Patient had an infectious workup that was completed which revealed no findings of UTI pneumonia cellulitis bacteremia etc. Patient remained off of all psychoactive medications that could've exacerbated symptoms such as antihistamines, anticholinergics, benzodiazepines, hypnotics and opiates. Patient was continued on her home medications and case management was consulted for rehabilitation placement. Patient is felt to have received maximal hospital benefit and will discharge to SNF when bed is available. Dedicated discharge time 35 minutes. 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 (2) Confusion Status: Acute (3) Failure to thrive in adult Status: Acute (4) Weakness Status: Acute Core Measure Documentation - Palliative Care Palliative Care/ Comfort Measures: Not Applicable - Core Measures Any of the following diagnoses?: none Exam - Constitutional Vitals: Temp Pulse Resp BP Pulse Ox 99.0 F 91 H 20 104/59 94 07/26/16 08:10 07/26/16 08:10 07/26/16 08:10 07/26/16 08:10 07/26/16 08:10 General appearance: Present: no acute distress, well-nourished - EENT Eyes: Present: PERRL ENT: hearing intact, clear oral mucosa - Neck Neck: Present: supple, normal ROM - Respiratory Respiratory effort: normal Respiratory: bilateral: CTA - Cardiovascular Heart Sounds: Present: S1 & S2. Absent: rub, click - Extremities Extremities: pulses symmetrical, No edema Peripheral Pulses: within normal limits - Abdominal General gastrointestinal: Present: soft, non-tender, non-distended, normal bowel sounds Female genitourinary: Present: normal - Integumentary Integumentary: Present: clear, warm, dry - Musculoskeletal Musculoskeletal: gait normal, strength equal bilaterally - Psychiatric Psychiatric: appropriate mood/affect, intact judgment & insight - Neurologic Neurologic: CNII-XII intact, other (gen weakness findings c/w HD) Plan Activity: advance as tolerated Weight Bearing Status: Weight Bear as Tolerated Diet: regular Follow up with: RODRIGUEZ SANTIAGO MD [Primary Care Provider] - 3-5 Days
[2016-07-27] MEDS: LOVENOX SUB-Q SCH (09:32)
--- NOTE | 2016-07-27 13:46 | Progress Note ---
Assessment and Plan Assessment and plan: 1. [place]'s disease. Supportive care. PT/OT. 2. Adult failure to thrive/deconditioning/debility. PT evaluation 3. DVT prophylaxis. Lovenox daily. Disposition. Patient awaiting placement. History Interval history: Follow-up for her to thrive Patient is awaiting placement Hospitalist Physical - Constitutional Vitals: Temp Pulse Resp BP Pulse Ox 98.5 F 82 16 102/60 95 07/27/16 08:00 07/27/16 08:00 07/27/16 08:00 07/27/16 08:00 07/27/16 08:00 General appearance: Present: no acute distress, well-nourished - EENT Eyes: Present: PERRL, EOM intact. Absent: scleral icterus, conjunctival injection ENT: hearing intact, clear oral mucosa, no oropharyngeal erythema, no poor dentition - Neck Neck: Present: supple, normal ROM. Absent: enlarged thyroid, masses or JVD - Respiratory Respiratory effort: normal Respiratory: negative: diminished, rales, rhonchi, wheezing - Cardiovascular Rhythm: regular Heart Sounds: Present: S1 & S2. Absent: gallop - Extremities Extremities: no ischemia, pulses intact, pulses symmetrical, No edema Peripheral Pulses: within normal limits - Abdominal General gastrointestinal: soft, non-tender, non-distended, normal bowel sounds - Integumentary Integumentary: Present: clear - Psychiatric Psychiatric: cooperative - Neurologic Neurologic: CNII-XII intact, moves all extremities Results - Labs CBC & Chem 7: 07/21/16 05:13 07/21/16 05:13 Labs: Laboratory Last Values WBC 5.8 K/mm3 (4.5-11.0) 07/21/16 05:13 RBC 3.51 M/mm3 (3.65-5.03) L 07/21/16 05:13 Hgb 10.7 gm/dl (10.1-14.3) 07/21/16 05:13 Hct 32.0 % (30.3-42.9) 07/21/16 05:13 MCV 91 fl (79-97) 07/21/16 05:13 MCH 30 pg (28-32) 07/21/16 05:13 MCHC 33 % (30-34) 07/21/16 05:13 RDW 13.3 % (13.2-15.2) 07/21/16 05:13 Plt Count 255 K/mm3 (140-440) 07/21/16 05:13 Lymph % (Auto) 48.7 % (13.4-35.0) H 07/21/16 05:13 [place] % (Auto) 7.8 % (0.0-7.3) H 07/21/16 05:13 Eos % (Auto) 3.9 % (0.0-4.3) 07/21/16 05:13 Baso % (Auto) 0.2 % (0.0-1.8) 07/21/16 05:13 Lymph # 2.8 K/mm3 (1.2-5.4) 07/21/16 05:13 [place] # 0.5 K/mm3 (0.0-0.8) 07/21/16 05:13 Eos # 0.2 K/mm3 (0.0-0.4) 07/21/16 05:13 Baso # 0.0 K/mm3 (0.0-0.1) 07/21/16 05:13 Seg Neutrophils % 39.4 % (40.0-70.0) L 07/21/16 05:13 Seg Neutrophils # 2.3 K/mm3 (1.8-7.7) 07/21/16 05:13 Sodium 142 mmol/L (137-145) 07/21/16 05:13 Potassium 3.9 mmol/L (3.6-5.0) 07/21/16 05:13 Chloride 108.2 mmol/L (98-107) H 07/21/16 05:13 Carbon Dioxide 24 mmol/L (22-30) 07/21/16 05:13 Anion Gap 14 mmol/L 07/21/16 05:13 BUN 6 mg/dL (7-17) L 07/21/16 05:13 Creatinine 0.5 mg/dL (0.7-1.2) L 07/21/16 05:13 Estimated GFR > 60 ml/min 07/21/16 05:13 BUN/Creatinine Ratio 12.00 % 07/21/16 05:13 Glucose 81 mg/dL (65-100) 07/21/16 05:13 POC Glucose 88 (70-105) 07/27/16 06:49 Lactic Acid 1.1 mmol/L (0.7-2.0) 07/19/16 15:35 Calcium 8.4 mg/dL (8.4-10.2) 07/21/16 05:13 Magnesium 2.4 mg/dL (1.7-2.3) H 07/19/16 15:35 Total Bilirubin 0.2 mg/dL (0.1-1.2) 07/19/16 15:35 AST 25 units/L (5-40) 07/19/16 15:35 ALT 16 units/L (7-56) 07/19/16 15:35 Alkaline Phosphatase 102 units/L (35-129) 07/19/16 15:35 Ammonia 47.0 umol/L (25-60) 07/20/16 20:40 Total Protein 7.4 g/dL (6.3-8.2) 07/19/16 15:35 Albumin 4.3 g/dL (3.9-5) 07/19/16 15:35 Albumin/Globulin Ratio 1.4 % 07/19/16 15:35 Vitamin B12 483.8 pg/mL (211-911) 07/20/16 20:40 TSH 5.050 mlU/mL (0.270-4.200) H 07/19/16 15:35 Thyroxine (T4) 5.9 ug/dL (4.0-12.0) 07/20/16 08:02 Urine Color Yellow (Yellow) 07/20/16 Unknown Urine Turbidity Clear (Clear) 07/20/16 Unknown Urine pH 5.0 (5.0-7.0) 07/20/16 Unknown Ur Specific [place] 1.013 (1.003-1.030) 07/20/16 Unknown Urine Protein <15 mg/dl mg/dL (Negative) 07/20/16 Unknown Urine Glucose (UA) Neg mg/dL (Negative) 07/20/16 Unknown Urine Ketones Neg mg/dL (Negative) 07/20/16 Unknown Urine Blood Neg (Negative) 07/20/16 Unknown Urine Nitrite Neg (Negative) 07/20/16 Unknown Urine Bilirubin Neg (Negative) 07/20/16 Unknown Urine Urobilinogen < 2.0 mg/dL (<2.0) 07/20/16 Unknown Ur Leukocyte Esterase Neg (Negative) 07/20/16 Unknown Urine WBC (Auto) 0.0 /HPF (0.0-6.0) 07/20/16 Unknown Urine RBC (Auto) < 1.0 /HPF (0.0-6.0) 07/20/16 Unknown Urine Mucus Few /HPF 07/20/16 Unknown Salicylates < 0.3 mg/dL (2.8-20.0) L 07/19/16 15:11 Urine Opiates Screen Presumptive negative 07/20/16 Unknown Urine Methadone Screen Presumptive negative 07/20/16 Unknown Acetaminophen < 15.0 ug/mL (10.0-30.0) 07/19/16 15:35 Ur Barbiturates Screen Presumptive negative 07/20/16 Unknown Ur Phencyclidine Scrn Presumptive negative 07/20/16 Unknown Ur Amphetamines Screen Presumptive negative 07/20/16 Unknown U Benzodiazepines Scrn Presumptive negative 07/20/16 Unknown Urine Cocaine Screen Presumptive negative 07/20/16 Unknown U Marijuana (THC) Screen Presumptive negative 07/20/16 Unknown Drugs of Abuse Note Disclamer 07/20/16 Unknown Plasma/Serum Alcohol < 0.01 gm% (0-0.07) 07/19/16 15:35
[2016-07-27 16:32] VITALS: BP 106/58
== END 2016-07-27 18:00 | DRG 56 ==
LOC: ED 13:20 → 3A 07-20 01:19
PROVIDERS: ADMIT Internal Medicine; ATTEND Hospitalist
DX: G10 Huntington's disease (principal); G93.49 Other encephalopathy; R62.7 Adult failure to thrive; F02.80 Dementia in other diseases classified elsewhere, unspecified severity, without behavioral disturbance, psychotic disturbance, mood disturbance, and anxiety; R29.6 Repeated falls; Z60.2 Problems related to living alone; G11.8 Other hereditary ataxias; Z82.49 Family history of ischemic heart disease and other diseases of the circulatory system; Z79.899 Other long term (current) drug therapy
CPT/HCPCS: 36415; 70450; 80048; 80053; 80307; 80320; 81001; 82140; 82607; 82962; 83735; 84436; 84443; 85025; 87040; 93005; 93010; 96360; G0480; G8978-GP; G8979-GP; G8996-GN; G8997-GN; G8998-GN; J1650; J7030

== ENCOUNTER 2018-08-27 07:53 | Inpatient (IN) | payer MEDICARE ==
[2018-08-27] MEDS ORDERED: NACL 0.9% 1000 ML 1,000 ML ONE (08:09)
[2018-08-27] MEDS ORDERED: NACL 0.9% 1000 ML 1,000 ML IV ONE (08:25)
[2018-08-27] MEDS ORDERED: PROTONIX IV ONE ×3 (08:50→10:13)
[2018-08-27 09:24] LABS: Basophils % (Auto) 0.1 % (0.0-1.8); Hematocrit 34.5 % (30.3-42.9); Hemoglobin 11.5 gm/dl (10.1-14.3); Lymphocytes # (Auto) 0.8 K/mm3 (1.2-5.4); Lymphocytes % (Auto) 8.4 % (13.4-35.0); Mean Corpuscular HGB Conc 33 % (30-34); Mean Corpuscular Volume 88 fl (79-97); Monocytes # (Auto) 0.5 K/mm3 (0.0-0.8); Monocytes % (Auto) 5.6 % (0.0-7.3); Platelet Count 381 K/mm3 (140-440); Red Cell Distribution Width 13.9 % (13.2-15.2)
[2018-08-27 09:37] LABS: BUN/Creatinine Ratio 30; Blood Urea Nitrogen 15 mg/dL (7-17); Calcium 8.1 mg/dL (8.4-10.2); Hemolysis Index 7
[2018-08-27 09:38] LABS: INR 0.96 (0.87-1.13); Partial Thromboplastin Time 31.4 Sec. (24.2-36.6)
[2018-08-27 09:40] LABS: Alanine Aminotransferase 11 units/L (7-56); Albumin 3.1 g/dL (3.9-5)
[2018-08-27 09:41] LABS: Bilirubin,Direct < 0.2 mg/dL (0-0.2)
[2018-08-27] MEDS ORDERED: PROTONIX 80 MG in NACL 0.9% 100 ML IV SCH (11:00)
--- NOTE | 2018-08-27 11:44 | Emergency Department Report ---
ED General Adult HPI - General Chief complaint: GI Bleed Stated complaint: GI BLEED Time Seen by Provider: 08/27/18 08:18 Source: EMS, old records reviewed Mode of arrival: Stretcher Limitations: Physical Limitation - History of Present Illness Initial comments: The patient presents from a local intermediate for dark coffee ground emesis that started this morning. Patient has a diagnosis of MR thus not able to help with the history and exam. -: Sudden Radiation: non-radiation Severity scale (0 -10): 0 Quality: burning Consistency: constant Improves with: none Worsens with: none Associated Symptoms: denies other symptoms Treatments Prior to Arrival: none - Related Data Home Medications Medication Instructions Recorded Confirmed Last Taken Benztropine [Cogentin] 1 mg PO DAILY 07/20/16 08/04/17 07/19/16 Citalopram Hydrobromide 10 mg PO DAILY 07/20/16 08/04/17 07/19/16 [Citalopram HBr] clonazePAM 0.5 mg PO BID 07/20/16 08/04/17 07/19/16 OLANzapine [ZyPREXA] 5 mg PO BID 08/03/17 08/04/17 Unknown Acetaminophen [Acetaminophen TAB] 650 mg PO Q6HR PRN 08/04/17 08/04/17 Unknown Mirtazapine [Remeron] 15 mg PO HS 08/04/17 08/04/17 Unknown Ranitidine HCl [Zantac 150 MG TAB] 150 mg PO BID 08/04/17 08/04/17 Unknown Previous Rx's Medication Instructions Recorded Last Taken Type Bisacodyl [Dulcolax suppos] 10 mg [place] QDAY PRN #30 supp.rect 07/26/16 Unknown Rx Amoxicillin/Potassium Clav 1 each PO BID #10 tablet 08/05/17 Unknown Rx [Augmentin 875-125 Tablet] Allergies Allergy/AdvReac Type Severity Reaction Status Date / Time No Known Allergies Allergy Verified 08/27/18 08:10 ED Review of Systems ROS: Stated complaint: GI BLEED Other details as noted in HPI Comment: Unobtainable due to pts medical conditions ED Past Medical Hx - Past Medical History Hx Hypertension: Yes (depression, schizo) Hx GERD: Yes Additional medical history: Mental Retardation. Neurological Disorder - Social History Smoking Status: Never Smoker Substance Use Type: None - Medications Home Medications: Home Medications Medication Instructions Recorded Confirmed Last Taken Type Benztropine [Cogentin] 1 mg PO DAILY 07/20/16 08/04/17 07/19/16 History Citalopram Hydrobromide 10 mg PO DAILY 07/20/16 08/04/17 07/19/16 History [Citalopram HBr] clonazePAM 0.5 mg PO BID 07/20/16 08/04/17 07/19/16 History Bisacodyl [Dulcolax suppos] 10 mg TX QDAY PRN #30 supp.rect 07/26/16 08/04/17 Unknown Rx OLANzapine [ZyPREXA] 5 mg PO BID 08/03/17 08/04/17 Unknown History Acetaminophen [Acetaminophen TAB] 650 mg PO Q6HR PRN 08/04/17 08/04/17 Unknown History Mirtazapine [Remeron] 15 mg PO HS 08/04/17 08/04/17 Unknown History Ranitidine HCl [Zantac 150 MG TAB] 150 mg PO BID 08/04/17 08/04/17 Unknown H istory Amoxicillin/Potassium Clav 1 each PO BID #10 tablet 08/05/17 Unknown Rx [Augmentin 875-125 Tablet] ED Physical Exam - General Limitations: Physical Limitation General appearance: alert, in no apparent distress - Head Head exam: Present: atraumatic, normocephalic - Eye Eye exam: Present: normal appearance, PERRL, EOMI - ENT ENT exam: Present: mucous membranes moist, other (heart [id number] particles in the oropharynx on exam) - Neck Neck exam: Present: normal inspection - Respiratory Respiratory exam: Present: normal lung sounds bilaterally, respiratory distress. Absent: wheezes, rales, rhonchi - Cardiovascular Cardiovascular Exam: Present: regular rate, normal rhythm, tachycardia - GI/Abdominal GI/Abdominal exam: Present: soft, normal bowel sounds. Absent: distended, tenderness - Extremities Exam Extremities exam: Present: normal inspection - Neurological Exam Neurological exam: Present: alert, altered, CN II-XII intact, motor sensory deficit - Psychiatric Psychiatric exam: Present: other (not able to assess due to the patient's baseline MR) - Skin Skin exam: Present: warm, dry, intact, normal color. Absent: rash ED Course Vital Signs 08/27/18 08/27/18 08/27/18 07:56 08:00 08:10 Temperature 98.9 F Pulse Rate 118 H 119 H 114 H Respiratory 25 H 21 18 Rate Blood Pressure 92/50 91/52 O2 Sat by Pulse 96 Oximetry 08/27/18 08/27/18 08/27/18 08:23 08:30 08:45 Temperature Pulse Rate 118 H 112 H 109 H Respiratory 20 24 25 H Rate Blood Pressure 93/45 91/47 O2 Sat by Pulse 96 94 95 Oximetry 08/27/18 08/27/18 08/27/18 09:00 09:15 09:30 Temperature Pulse Rate 112 H 120 H 112 H Respiratory 30 H 18 27 H Rate Blood Pressure 92/46 89/52 87/42 O2 Sat by Pulse 97 96 82 L Oximetry 08/27/18 08/27/18 08/27/18 09:45 10:00 11:00 Temperature Pulse Rate 109 H 106 H 103 H Respiratory 18 16 22 Rate Blood Pressure 83/48 62/46 91/45 O2 Sat by Pulse 95 95 93 Oximetry ED Medical Decision Making - Lab Data Result diagrams: 08/27/18 08:31 08/27/18 08:36 Lab Results 08/27/18 08/27/18 08/27/18 Range/Units 08:31 08:31 08:36 WBC 9.6 (4.5-11.0) K/mm3 RBC 3.90 (3.65-5.03) M/mm3 Hgb 11.5 (10.1-14.3) gm/dl Hct 34.5 (30.3-42.9) % MCV 88 (79-97) fl MCH 30 (28-32) pg MCHC 33 (30-34) % RDW 13.9 (13.2-15.2) % Plt Count 381 (140-440) K/mm3 Lymph % (Auto) 8.4 L (13.4-35.0) % Vernon % (Auto) 5.6 (0.0-7.3) % Eos % (Auto) 0.0 (0.0-4.3) % Baso % (Auto) 0.1 (0.0-1.8) % Lymph # 0.8 L (1.2-5.4) K/mm3 Vernon # 0.5 (0.0-0.8) K/mm3 Eos # 0.0 (0.0-0.4) K/mm3 Baso # 0.0 (0.0-0.1) K/mm3 Seg Neutrophils % 85.9 H (40.0-70.0) % Seg Neutrophils # 8.2 H (1.8-7.7) K/mm3 PT (12.2-14.9) Sec. INR (0.87-1.13) APTT (24.2-36.6) Sec. Sodium 140 (137-145) mmol/L Potassium 3.5 L (3.6-5.0) mmol/L Chloride 103.5 (98-107) mmol/L Carbon Dioxide 27 (22-30) mmol/L Anion Gap 13 mmol/L BUN 15 (7-17) mg/dL Creatinine 0.5 L (0.7-1.2) mg/dL Estimated GFR > 60 ml/min BUN/Creatinine Ratio 30 % Glucose 116 H (65-100) mg/dL Calcium 8.1 L (8.4-10.2) mg/dL Total Bilirubin 0.30 (0.1-1.2) mg/dL Direct Bilirubin < 0.2 (0-0.2) mg/dL Indirect Bilirubin 0.1 mg/dL AST 16 (5-40) units/L ALT 11 (7-56) units/L Alkaline Phosphatase 83 (35-129) units/L Total Protein 6.5 (6.3-8.2) g/dL Albumin 3.1 L (3.9-5) g/dL Albumin/Globulin Ratio 0.9 % // Range/Units 08:36 WBC (4.5-11.0) K/mm3 RBC (3.65-5.03) M/mm3 Hgb (10.1-14.3) gm/dl Hct (30.3-42.9) % MCV (79-97) fl MCH (28-32) pg MCHC (30-34) % RDW (13.2-15.2) % Plt Count (140-440) K/mm3 Lymph % (Auto) (13.4-35.0) % Vernon % (Auto) (0.0-7.3) % Eos % (Auto) (0.0-4.3) % Baso % (Auto) (0.0-1.8) % Lymph # (1.2-5.4) K/mm3 Vernon # (0.0-0.8) K/mm3 Eos # (0.0-0.4) K/mm3 Baso # (0.0-0.1) K/mm3 Seg Neutrophils % (40.0-70.0) % Seg Neutrophils # (1.8-7.7) K/mm3 PT 13.4 (12.2-14.9) Sec. INR 0.96 (0.87-1.13) APTT 31.4 (24.2-36.6) Sec. Sodium (137-145) mmol/L Potassium (3.6-5.0) mmol/L Chloride (98-107) mmol/L Carbon Dioxide (22-30) mmol/L Anion Gap mmol/L BUN (7-17) mg/dL Creatinine (0.7-1.2) mg/dL Estimated GFR ml/min BUN/Creatinine Ratio % Glucose (65-100) mg/dL Calcium (8.4-10.2) mg/dL Total Bilirubin (0.1-1.2) mg/dL Direct Bilirubin (0-0.2) mg/dL Indirect Bilirubin mg/dL AST (5-40) units/L ALT (7-56) units/L Alkaline Phosphatase (35-129) units/L Total Protein (6.3-8.2) g/dL Albumin (3.9-5) g/dL Albumin/Globulin Ratio % - Radiology Data Radiology results: report reviewed - Medical Decision Making Bolus of Protonix given via IV Protonix IV drip started The patient has DO NOT RESUSCITATE paperwork from the intermediate available in the chart Critical Care Time: Yes Critical care time in (mins) excluding proc time.: 35 Critical care attestation.: If time is entered above; I have spent that time in minutes in the direct care of this critically ill patient, excluding procedure time. ED Disposition Clinical Impression: Hematemesis Disposition: OP ADMIT IP TO THIS HOSP Is pt being admited?: Yes Does the pt Need Aspirin: No Condition: Fair Referrals: RODRIGUEZ SANTIAGO MD [Primary Care Provider] - 3-5 Days Forms: Accompanied Note
[2018-08-27] MEDS ORDERED: SODIUM CHLORIDE FLUSH SYRINGE 10 ML IV PRN (13:25)
[2018-08-27] MEDS ORDERED: TYLENOL PO PRN (13:25)
[2018-08-27] MEDS ORDERED: DILAUDID IV PRN (13:25)
[2018-08-27] MEDS ORDERED: ZOFRAN IV PRN (13:25)
--- NOTE | 2018-08-27 13:41 | History and Physical Report ---
History of Present Illness Date of examination: 08/27/18 Date of admission: 08/27/18 12:58 Chief complaint: Coffee-ground emesis X 2 History of present illness: The patient [facility] a [facility] for dark coffee ground emesis that started this morning. Patient has a diagnosis of MR thus not able to help with the history and exam. No vomiting. Had a soft brown stool while in the emergency room. No tarry stools. Very poor historian. Patient on ranitidine 150 twice a day Was discharged on 08/05/2017 after being treated for Sepsis, likely from b/L PNA Pneumonia Kai's disease Hypotension Hypernatremia Moderate to severe malnutrition Past Medical History Hx Hypertension: Yes (depression, schizo) Hx GERD: Yes Additional medical history: Mental Retardation. Neurological Disorder Social History Smoking Status: Never Smoker Substance Use Type: None Surgical history unavailable Family history unavailable Medications Home Medications: Home Medications Medication Instructions Recorded Confirmed Last Taken Type Benztropine [Cogentin] 1 mg PO DAILY 07/20/16 08/04/17 07/19/16 History Citalopram Hydrobromide 10 mg PO DAILY 07/20/16 08/04/17 07/19/16 History [Citalopram HBr] clonazePAM 0.5 mg PO BID 07/20/16 08/04/17 07/19/16 History Bisacodyl [Dulcolax suppos] 10 mg ND QDAY PRN #30 supp.rect 07/26/16 08/04/17 Unknown Rx OLANzapine [ZyPREXA] 5 mg PO BID 08/03/17 08/04/17 Unknown History Acetaminophen [Acetaminophen TAB] 650 mg PO Q6HR PRN 08/04/17 08/04/17 Unknown History Mirtazapine [Remeron] 15 mg PO HS 08/04/17 08/04/17 Unknown History Ranitidine HCl [Zantac 150 MG TAB] 150 mg PO BID 08/04/17 08/04/17 Unknown History Amoxicillin/Potassium Clav 1 each PO BID #10 tablet 08/05/17 Unknown Rx [Augmentin 875-125 Tablet] Review of systems ROS: Stated complaint: GI BLEED Other details as noted in HPI Comment: Unobtainable due to pts medical conditions Medications and Allergies Allergies Allergy/AdvReac Type Severity Reaction Status Date / Time No Known Allergies Allergy Verified 08/27/18 08:10 Home Medications Medication Instructions Recorded Confirmed Last Taken Type Benztropine [Cogentin] 1 mg PO DAILY 07/20/16 08/04/17 07/19/16 History Citalopram Hydrobromide 10 mg PO DAILY 07/20/16 08/04/17 07/19/16 History [Citalopram HBr] clonazePAM 0.5 mg PO BID 07/20/16 08/04/17 07/19/16 History Bisacodyl [Dulcolax suppos] 10 mg ND QDAY PRN #30 supp.rect 07/26/16 08/04/17 Unknown Rx OLANzapine [ZyPREXA] 5 mg PO BID 08/03/17 08/04/17 Unknown History Acetaminophen [Acetaminophen TAB] 650 mg PO Q6HR PRN 08/04/17 08/04/17 Unknown History Mirtazapine [Remeron] 15 mg PO HS 08/04/17 08/04/17 Unknown History Ranitidine HCl [Zantac 150 MG TAB] 150 mg PO BID 08/04/17 08/04/17 Unknown History Amoxicillin/Potassium Clav 1 each PO BID #10 tablet 08/05/17 Unknown Rx [Augmentin 875-125 Tablet] Active Meds: Active Medications Acetaminophen (Tylenol) 650 mg PO Q4H PRN PRN Reason: Pain MILD(1-3)/Fever >100.5/[place] Hydromorphone HCl (Dilaudid) 0.25 mg IV Q3H PRN PRN Reason: Pain, Moderate (4-6) Pantoprazole Sodium 80 mg/ (Sodium Chloride) 100 mls @ 10 mls/hr IV DIRECT EUGENIO Dextrose/Sodium Chloride (D5ns) 1,000 mls @ 75 mls/hr IV DIRECT EUGENIO Ondansetron HCl (Zofran) 4 mg IV Q8H PRN PRN Reason: Nausea And Vomiting Sodium Chloride (Sodium Chloride Flush Syringe 10 Ml) 10 ml IV BID EUGENIO Sodium Chloride (Sodium Chloride Flush Syringe 10 Ml) 10 ml IV PRN PRN PRN Reason: LINE FLUSH Exam - Physical Exam Narrative exam: Frail appearing female lying in bed - Constitutional Vitals: Temp Pulse Resp BP Pulse Ox 98.9 F 99 H 19 91/45 93 08/27/18 08:10 08/27/18 12:00 08/27/18 12:00 08/27/18 12:00 08/27/18 11:00 General appearance: Present: no acute distress, well-nourished - EENT Eyes: Present: PERRL ENT: hearing intact, clear oral mucosa - Neck Neck: Present: supple, normal ROM - Respiratory Respiratory effort: normal Respiratory: bilateral: CTA - Cardiovascular Heart rate: 88 Rhythm: regular Heart Sounds: Present: S1 & S2. Absent: rub, click - Extremities Extremities: no ischemia, pulses intact, pulses symmetrical, No edema Peripheral Pulses: within normal limits - Abdominal General gastrointestinal: Present: soft, non-tender, non-distended, normal bowel sounds Female genitourinary: Present: normal - Rectal Rectal Exam: stool brown (occult blood negative) - Integumentary Integumentary: Present: clear, warm, dry - Musculoskeletal Musculoskeletal: generalized weakness - Psychiatric Psychiatric: other (patient mentally retarded) - Neurologic Neurologic: CNII-XII intact, moves all extremities - Allied Health Allied health notes reviewed: nursing, case management Results - Labs CBC & Chem 7: 08/27/18 08:31 08/27/18 08:36 Labs: Laboratory Last Values WBC 9.6 K/mm3 (4.5-11.0) 08/27/18 08:31 RBC 3.90 M/mm3 (3.65-5.03) 08/27/18 08:31 Hgb 11.5 gm/dl (10.1-14.3) 08/27/18 08:31 Hct 34.5 % (30.3-42.9) 08/27/18 08:31 MCV 88 fl (79-97) 08/27/18 08:31 MCH 30 pg (28-32) 08/27/18 08:31 MCHC 33 % (30-34) 08/27/18 08:31 RDW 13.9 % (13.2-15.2) 08/27/18 08:31 Plt Count 381 K/mm3 (140-440) 08/27/18 08:31 Lymph % (Auto) 8.4 % (13.4-35.0) L 08/27/18 08:31 Tate % (Auto) 5.6 % (0.0-7.3) 08/27/18 08:31 Eos % (Auto) 0.0 % (0.0-4.3) 08/27/18 08:31 Baso % (Auto) 0.1 % (0.0-1.8) 08/27/18 08:31 Lymph # 0.8 K/mm3 (1.2-5.4) L 08/27/18 08:31 Tate # 0.5 K/mm3 (0.0-0.8) 08/27/18 08:31 Eos # 0.0 K/mm3 (0.0-0.4) 08/27/18 08:31 Baso # 0.0 K/mm3 (0.0-0.1) 08/27/18 08:31 Seg Neutrophils % 85.9 % (40.0-70.0) H 08/27/18 08:31 Seg Neutrophils # 8.2 K/mm3 (1.8-7.7) H 08/27/18 08:31 PT 13.4 Sec. (12.2-14.9) 08/27/18 08:36 INR 0.96 (0.87-1.13) 08/27/18 08:36 APTT 31.4 Sec. (24.2-36.6) 08/27/18 08:36 Sodium 140 mmol/L (137-145) 08/27/18 08:36 Potassium 3.5 mmol/L (3.6-5.0) L 08/27/18 08:36 Chloride 103.5 mmol/L (98-107) 08/27/18 08:36 Carbon Dioxide 27 mmol/L (22-30) 08/27/18 08:36 Anion Gap 13 mmol/L 08/27/18 08:36 BUN 15 mg/dL (7-17) 08/27/18 08:36 Creatinine 0.5 mg/dL (0.7-1.2) L 08/27/18 08:36 Estimated GFR > 60 ml/min 08/27/18 08:36 BUN/Creatinine Ratio 30 % 08/27/18 08:36 Glucose 116 mg/dL (65-100) H 08/27/18 08:36 Calcium 8.1 mg/dL (8.4-10.2) L 08/27/18 08:36 Total Bilirubin 0.30 mg/dL (0.1-1.2) 08/27/18 08:31 Direct Bilirubin < 0.2 mg/dL (0-0.2) 08/27/18 08:31 Indirect Bilirubin 0.1 mg/dL 08/27/18 08:31 AST 16 units/L (5-40) 08/27/18 08:31 ALT 11 units/L (7-56) 08/27/18 08:31 Alkaline Phosphatase 83 units/L (35-129) 08/27/18 08:31 Total Protein 6.5 g/dL (6.3-8.2) 08/27/18 08:31 Albumin 3.1 g/dL (3.9-5) L 08/27/18 08:31 Albumin/Globulin Ratio 0.9 % 08/27/18 08:31 Assessment and Plan Advance Directives: Yes (DO NOT RESUSCITATE) VTE prophylaxis?: Mechanical Plan of care discussed with patient/family: Yes - Patient Problems (1) Upper GI bleed Current Visit: Yes Status: Acute Plan to address problem: Patient has 2 episodes of coffee-ground emesis GI consult requested Protonix IV drip started NG tube was placed and had to be taken out because of severe resistance by the patient Hemoglobin and hematocrit every 8 hours for 3 times (2) COPD (chronic obstructive pulmonary disease) Current Visit: Yes Status: Chronic Qualifiers: COPD type: unspecified COPD Qualified Code(s): J44.9 - Chronic obstructive pulmonary disease, unspecified Plan to address problem: Duo nebs when necessary (3) Failure to thrive in adult Current Visit: No Status: Chronic Plan to address problem: Patient is emaciated and below normal rate Abdomen is slightly low\dietitian consult (4) Hypertension Current Visit: Yes Status: Chronic Qualifiers: Hypertension type: essential hypertension Qualified Code(s): I10 - Essential (primary) hypertension Plan to address problem: Antihypertensives as necessary (5) Schizophrenia Current Visit: Yes Status: Chronic Qualifiers: Schizophrenia type: unspecified Qualified Code(s): F20.9 - Schizophrenia, unspecified Plan to address problem: Patient on Zyprexa Cogentin and citalopram . Continue same once she resumes eating (6) [place] disease Current Visit: Yes Status: Chronic Plan to address problem: Not on any medications (7) Acute gastritis Current Visit: Yes Status: Acute Qualifiers: Gastritis bleeding: with bleeding Plan to address problem: Patient was on ranitidine. Protonix IV drip initiated (8) Malnutrition Current Visit: Yes Status: Chronic Qualifiers: Malnutrition type: protein-calorie malnutrition Protein-calorie malnutrition severity: moderate Qualified Code(s): E44.0 - Moderate protein-ca em malnutrition Plan to address problem: Dietitian consult requested (9) Hypocalcemia Current Visit: Yes Status: Chronic Plan to address problem: Calcium supplements once she starts eating Calcium gluconate in the meantime (10) DVT prophylaxis Current Visit: Yes Status: Acute Plan to address problem: No Lovenox or heparin because the patient has GI bleed Patient on IV Protonix
[2018-08-27 14:46] LABS: Hematocrit 29.7 % (30.3-42.9); Hemoglobin 10.1 gm/dl (10.1-14.3)
--- NOTE | 2018-08-27 15:56 | Consultation ---
History of Present Illness - Reason for Consult Consult date: 08/27/18 Coffee ground emesis Requesting physician: DANICA HINOJOSA - History of Present Illness Mrs. Og is a 63-year-old woman who is a jail resident and has a history of mental retardation. She was [facility] to the emergency [facility] by the jail with a reported history of coffee ground emesis. There is no other information available as regards any abdominal pain nausea or vomiting. Patient is unable to give a history. Past History Past Medical History: anemia, other (Profound mental retardation) Past Surgical History: Other (None known) Social history: other (Penitentiary resident). denies: smoking, alcohol abuse Family history: other (None known) Medications and Allergies Allergies Allergy/AdvReac Type Severity Reaction Status Date / Time No Known Allergies Allergy Verified 08/27/18 08:10 Home Medications Medication Instructions Recorded Confirmed Last Taken Type Benztropine [Cogentin] 1 mg PO DAILY 07/20/16 08/04/17 07/19/16 History Citalopram Hydrobromide 10 mg PO DAILY 07/20/16 08/04/17 07/19/16 History [Citalopram HBr] clonazePAM 0.5 mg PO BID 07/20/16 08/04/17 07/19/16 History Bisacodyl [Dulcolax suppos] 10 mg SC QDAY PRN #30 supp.rect 07/26/16 08/04/17 U nknown Rx OLANzapine [ZyPREXA] 5 mg PO BID 08/03/17 08/04/17 Unknown History Acetaminophen [Acetaminophen TAB] 650 mg PO Q6HR PRN 08/04/17 08/04/17 Unknown History Mirtazapine [Remeron] 15 mg PO HS 08/04/17 08/04/17 Unknown History Ranitidine HCl [Zantac 150 MG TAB] 150 mg PO BID 08/04/17 08/04/17 Unknown History Amoxicillin/Potassium Clav 1 each PO BID #10 tablet 08/05/17 Unknown Rx [Augmentin 875-125 Tablet] Active Meds: Active Medications Acetaminophen (Tylenol) 650 mg PO Q4H PRN PRN Reason: Pain MILD(1-3)/Fever >100.5/[place] Hydromorphone HCl (Dilaudid) 0.25 mg IV Q3H PRN PRN Reason: Pain, Moderate (4-6) Pantoprazole Sodium 80 mg/ (Sodium Chloride) 100 mls @ 10 mls/hr IV DIRECT EUGENIO Dextrose/Sodium Chloride (D5ns) 1,000 mls @ 75 mls/hr IV DIRECT EUGENIO Calcium Gluconate 2,000 mg/ (Sodium Chloride) 120 mls @ 660 mls/hr IV ONCE ONE Stop: 08/27/18 16:10 Potassium Chloride (Kcl 10meq/100ml) 10 meq in 100 mls @ 100 mls/hr IV Q1H EUGENIO Stop: 08/27/18 17:59 Ondansetron HCl (Zofran) 4 mg IV Q8H PRN PRN Reason: Nausea And Vomiting Sodium Chloride (Sodium Chloride Flush Syringe 10 Ml) 10 ml IV BID EUGENIO Sodium Chloride (Sodium Chloride Flush Syringe 10 Ml) 10 ml IV PRN PRN PRN Reason: LINE FLUSH Review of Systems ROS unobtainable: due to mental status Exam - Constitutional Vitals: Temp Pulse Resp BP Pulse Ox 98.9 F 99 H 19 91/45 93 08/27/18 08:10 08/27/18 12:00 08/27/18 12:00 08/27/18 12:00 08/27/18 11:00 General appearance: Present: no acute distress, cachectic, other - EENT Eyes: Present: PERRL, EOM intact - Respiratory Respiratory effort: normal Respiratory: bilateral: CTA - Cardiovascular Rhythm: regular Heart Sounds: Present: S1 & S2 - Extremities Extremities: No edema - Abdominal General gastrointestinal: Present: soft, non-tender - Rectal Rectal Exam: other (Light brown stool) Results - Labs CBC & Chem 7: 08/27/18 14:20 08/27/18 08:36 Labs: Abnormal lab results 08/27/18 08/27/18 08/27/18 Range/Units 08:31 08:31 08:36 Hct (30.3-42.9) % Lymph % (Auto) 8.4 L (13.4-35.0) % Lymph # 0.8 L (1.2-5.4) K/mm3 Seg Neutrophils % 85.9 H (40.0-70.0) % Seg Neutrophils # 8.2 H (1.8-7.7) K/mm3 Potassium 3.5 L (3.6-5.0) mmol/L Creatinine 0.5 L (0.7-1.2) mg/dL Glucose 116 H (65-100) mg/dL Calcium 8.1 L (8.4-10.2) mg/dL Albumin 3.1 L (3.9-5) g/dL 08/27/18 Range/Units 14:20 Hct 29.7 L (30.3-42.9) % Lymph % (Auto) (13.4-35.0) % Lymph # (1.2-5.4) K/mm3 Seg Neutrophils % (40.0-70.0) % Seg Neutrophils # (1.8-7.7) K/mm3 Potassium (3.6-5.0) mmol/L Creatinine (0.7-1.2) mg/dL Glucose (65-100) mg/dL Calcium (8.4-10.2) mg/dL Albumin (3.9-5) g/dL Assessment and Plan 1. Coffee ground emesis - by history. H/H stable compared with last year. No evidence of significant GI bleed by exam. Likely has erosive esophagitis. - options are chronic PPI and monitor vs EGD to document. Will try and speak with POA to decide and proceed. Meantime, full liquid diet and PPI, and monitor H/H.
[2018-08-27] MEDS ORDERED: CALCIUM GLUCONATE 2,000 MG in NACL 0.9% 100 ML IV ONE (16:00)
[2018-08-27] MEDS: D5NS 1,000 ML IV SCH (17:19)
[2018-08-27] MEDS ORDERED: K-DUR PO ONE (17:55)
[2018-08-27] MEDS ORDERED: KCL 10MEQ/100ML 10 MEQ/100 ML BAG IV SCH (18:00)
[2018-08-27] MEDS: SODIUM CHLORIDE FLUSH SYRINGE 10 ML IV SCH ×2 (18:40→22:47)
[2018-08-27 21:52] LABS: Hematocrit 30.2 % (30.3-42.9); Hemoglobin 10.2 gm/dl (10.1-14.3)
[2018-08-28] MEDS: D5NS 1,000 ML IV SCH ×2 (04:15→17:56)
[2018-08-28 07:28] LABS: Basophils % (Auto) 0.3 % (0.0-1.8); Eosinophils # (Auto) 0.1 K/mm3 (0.0-0.4); Eosinophils % (Auto) 1.4 % (0.0-4.3); Hematocrit 28.6 % (30.3-42.9); Hemoglobin 9.4 gm/dl (10.1-14.3); Lymphocytes # (Auto) 1.5 K/mm3 (1.2-5.4); Lymphocytes % (Auto) 23.1 % (13.4-35.0); Mean Corpuscular HGB Conc 33 % (30-34); Mean Corpuscular Volume 90 fl (79-97); Monocytes # (Auto) 0.5 K/mm3 (0.0-0.8); Monocytes % (Auto) 7.1 % (0.0-7.3); Platelet Count 299 K/mm3 (140-440); Red Blood Count 3.18 M/mm3 (3.65-5.03); Red Cell Distribution Width 13.7 % (13.2-15.2)
[2018-08-28 07:49] LABS: BUN/Creatinine Ratio 25; Blood Urea Nitrogen 10 mg/dL (7-17); Calcium 8.1 mg/dL (8.4-10.2); Hemolysis Index 2
[2018-08-28] MEDS: SODIUM CHLORIDE FLUSH SYRINGE 10 ML IV SCH ×2 (12:34→22:00)
[2018-08-28] MEDS: PROTONIX IV SCH ×2 (12:34→22:56)
--- NOTE | 2018-08-28 14:12 | Gastroenterology Progress Note ---
<AUSTIN CRUM - Last Filed: 08/28/18 14:15> Assessment and Plan 1.coffee ground emesis -H/H 9.4/28.6-stable compared to prior labs -continue to monitor H/H and transfuse as needed -no active signs of bleeding overnight or this am (stool brown upon rectal exam yesterday) -etiology- most likely 2/2 erosive esophagitis -no plan for EGD at this time unless overt bleeding develops -okay to start on diet -continue PPI and supportive care -no further recommendations per GI standpoint at this time -will sign off, please call if needed Subjective Date of service: 08/28/18 Principal diagnosis: GI bleed Interval history: No active signs of bleeding overnight or this am per nursing. Objective - Constitutional Vitals: Temp Pulse Resp BP Pulse Ox 97.4 F L 70 18 87/31 96 08/28/18 11:23 08/28/18 11:23 08/28/18 11:23 08/28/18 11:23 08/28/18 11:23 General appearance: no acute distress - Respiratory Respiratory effort: normal - Cardiovascular Rhythm: regular - Gastrointestinal General gastrointestinal: Present: soft, non-distended, normal bowel sounds - Labs CBC & Chem 7: 08/28/18 07:02 08/28/18 07:02 Labs: Laboratory Results - last 24 hr 08/27/18 08/27/18 08/27/18 14:20 14:20 21:15 WBC RBC Hgb 10.1 10.2 Hct 29.7 L 30.2 L MCV MCH MCHC RDW Plt Count Lymph % (Auto) [place] % (Auto) Eos % (Auto) Baso % (Auto) Lymph # [place] # Eos # Baso # Seg Neutrophils % Seg Neutrophils # Sodium Potassium Chloride Carbon Dioxide Anion Gap BUN Creatinine Estimated GFR BUN/Creatinine Ratio Glucose Hemoglobin A1c 5.2 Calcium 08/28/18 08/28/18 07:02 07:02 WBC 6.5 RBC 3.18 L Hgb 9.4 L Hct 28.6 L MCV 90 MCH 30 MCHC 33 RDW 13.7 Plt Count 299 Lymph % (Auto) 23.1 [place] % (Auto) 7.1 Eos % (Auto) 1.4 Baso % (Auto) 0.3 Lymph # 1.5 [place] # 0.5 Eos # 0.1 Baso # 0.0 Seg Neutrophils % 68.1 Seg Neutrophils # 4.4 Sodium 144 Potassium 4.1 Chloride 112.1 H Carbon Dioxide 26 Anion Gap 10 BUN 10 Creatinine 0.4 L Estimated GFR > 60 BUN/Creatinine Ratio 25 Glucose 109 H Hemoglobin A1c Calcium 8.1 L <DONAVON CASTANEDA R - Last Filed: 08/28/18 14:24> Assessment and Plan 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 No evidence of active bleeding. Plan as above. Discussed with Dr. Pérez. Objective - Constitutional Vitals: Temp Pulse Resp BP Pulse Ox 97.4 F L 70 18 87/31 96 08/28/18 11:23 08/28/18 11:23 08/28/18 11:23 08/28/18 11:23 08/28/18 11:23 - Labs CBC & Chem 7: 08/28/18 07:02 08/28/18 07:02 Labs: Laboratory Results - last 24 hr 08/27/18 08/27/18 08/27/18 14:20 14:20 21:15 WBC RBC Hgb 10.1 10.2 Hct 29.7 L 30.2 L MCV MCH MCHC RDW Plt Count Lymph % (Auto) [place] % (Auto) Eos % (Auto) Baso % (Auto) Lymph # [place] # Eos # Baso # Seg Neutrophils % Seg Neutrophils # Sodium Potassium Chloride Carbon Dioxide Anion Gap BUN Creatinine Estimated GFR BUN/Creatinine Ratio Glucose Hemoglobin A1c 5.2 Calcium 08/28/18 08/28/18 07:02 07:02 WBC 6.5 RBC 3.18 L Hgb 9.4 L Hct 28.6 L MCV 90 MCH 30 MCHC 33 RDW 13.7 Plt Count 299 Lymph % (Auto) 23.1 [place] % (Auto) 7.1 Eos % (Auto) 1.4 Baso % (Auto) 0.3 Lymph # 1.5 [place] # 0.5 Eos # 0.1 Baso # 0.0 Seg Neutrophils % 68.1 Seg Neutrophils # 4.4 Sodium 144 Potassium 4.1 Chloride 112.1 H Carbon Dioxide 26 Anion Gap 10 BUN 10 Creatinine 0.4 L Estimated GFR > 60 BUN/Creatinine Ratio 25 Glucose 109 H Hemoglobin A1c Calcium 8.1 L
--- NOTE | 2018-08-28 14:58 | Progress Note ---
Assessment and Plan Assessment and plan: Coffee ground emesis Monitor H/H Discussed with GI Physician . Would only do scope if further bleeding or significal H/H drop [place]'s disease Supportive care Mental Retardation Schizophrenia Code status. Nurse says Patient has a DO NOT RESUSCITATE status in the care home and I requested documentation. Initial document sent was not clear. Awaiting further documentation from the longterm facility to confirm DNR status History Interval history: Coffee ground emesis Hospitalist Physical - Physical exam Narrative exam: EN: Not in acute distress, lying in bed, cachectic HEENT: Normocephalic, atraumatic, Neck: supple, No JVD Heart:S1 and s2 reg, no murmurs Lungs: Clear to auscultation bilat, no crackles, no wheeze Abd:soft, non tender, non distended, normal bowel sounds Ext: Contracted Neuro:Lethargic, mental retardatio - Constitutional Vitals: Temp Pulse Resp BP Pulse Ox 97.4 F L 70 18 87/31 96 08/28/18 11:23 08/28/18 11:23 08/28/18 11:23 08/28/18 11:23 08/28/18 11:23 General appearance: Present: no acute distress, cachectic, other Results - Labs CBC & Chem 7: 08/29/18 05:23 08/28/18 07:02 Labs: Laboratory Last Values WBC 6.5 K/mm3 (4.5-11.0) 08/28/18 07:02 RBC 3.18 M/mm3 (3.65-5.03) L 08/28/18 07:02 Hgb 9.4 gm/dl (10.1-14.3) L 08/28/18 07:02 Hct 28.6 % (30.3-42.9) L 08/28/18 07:02 MCV 90 fl (79-97) 08/28/18 07:02 MCH 30 pg (28-32) 08/28/18 07:02 MCHC 33 % (30-34) 08/28/18 07:02 RDW 13.7 % (13.2-15.2) 08/28/18 07:02 Plt Count 299 K/mm3 (140-440) 08/28/18 07:02 Lymph % (Auto) 23.1 % (13.4-35.0) 08/28/18 07:02 [place] % (Auto) 7.1 % (0.0-7.3) 08/28/18 07:02 Eos % (Auto) 1.4 % (0.0-4.3) 08/28/18 07:02 Baso % (Auto) 0.3 % (0.0-1.8) 08/28/18 07:02 Lymph # 1.5 K/mm3 (1.2-5.4) 08/28/18 07:02 [place] # 0.5 K/mm3 (0.0-0.8) 08/28/18 07:02 Eos # 0.1 K/mm3 (0.0-0.4) 08/28/18 07:02 Baso # 0.0 K/mm3 (0.0-0.1) 08/28/18 07:02 Seg Neutrophils % 68.1 % (40.0-70.0) 08/28/18 07:02 Seg Neutrophils # 4.4 K/mm3 (1.8-7.7) 08/28/18 07:02 PT 13.4 Sec. (12.2-14.9) 08/27/18 08:36 INR 0.96 (0.87-1.13) 08/27/18 08:36 APTT 31.4 Sec. (24.2-36.6) 08/27/18 08:36 Sodium 144 mmol/L (137-145) 08/28/18 07:02 Potassium 4.1 mmol/L (3.6-5.0) 08/28/18 07:02 Chloride 112.1 mmol/L (98-107) H 08/28/18 07:02 Carbon Dioxide 26 mmol/L (22-30) 08/28/18 07:02 Anion Gap 10 mmol/L 08/28/18 07:02 BUN 10 mg/dL (7-17) 08/28/18 07:02 Creatinine 0.4 mg/dL (0.7-1.2) L 08/28/18 07:02 Estimated GFR > 60 ml/min 08/28/18 07:02 BUN/Creatinine Ratio 25 % 08/28/18 07:02 Glucose 109 mg/dL (65-100) H 08/28/18 07:02 Hemoglobin A1c 5.2 % (4-6) 08/27/18 14:20 Calcium 8.1 mg/dL (8.4-10.2) L 08/28/18 07:02 Total Bilirubin 0.30 mg/dL (0.1-1.2) 08/27/18 08:31 Direct Bilirubin < 0.2 mg/dL (0-0.2) 08/27/18 08:31 Indirect Bilirubin 0.1 mg/dL 08/27/18 08:31 AST 16 units/L (5-40) 08/27/18 08:31 ALT 11 units/L (7-56) 08/27/18 08:31 Alkaline Phosphatase 83 units/L (35-129) 08/27/18 08:31 Total Protein 6.5 g/dL (6.3-8.2) 08/27/18 08:31 Albumin 3.1 g/dL (3.9-5) L 08/27/18 08:31 Albumin/Globulin Ratio 0.9 % 08/27/18 08:31 Active Medications - Current Medications Current Medications: Generic Name Dose Route Start Last Admin Trade Name Freq PRN Reason Stop Dose Admin Acetaminophen 650 mg 08/27/18 13:25 Tylenol PO Q4H PRN Pain MILD(1-3)/Fever >100.5/FRANKLIN Hydromorphone HCl 0.25 mg 08/27/18 13:25 Dilaudid IV Q3H PRN Pain, Moderate (4-6) Dextrose/Sodium Chloride 1,000 mls @ 75 mls/hr 08/27/18 15:00 08/28/18 04:15 D5ns IV 75 mls/hr DIRECT EUGENIO Administration Ondansetron HCl 4 mg 08/27/18 13:25 Zofran IV Q8H PRN Nausea And Vomiting Pantoprazole Sodium 40 mg 08/28/18 10:00 08/28/18 12:34 Protonix IV 40 mg BID EUGENIO Administration Sodium Chloride 10 ml 08/27/18 15:00 08/28/18 12:34 Sodium Chloride Flush Syringe 10 Ml IV 10 ml BID EUGENIO Administration Sodium Chloride 10 ml 08/27/18 13:25 Sodium Chloride Flush Syringe 10 Ml IV PRN PRN LINE FLUSH
[2018-08-29 06:42] LABS: Hematocrit 26.7 % (30.3-42.9); Mean Corpuscular HGB Conc 34 % (30-34); Mean Corpuscular Volume 89 fl (79-97); Platelet Count 280 K/mm3 (140-440); Red Blood Count 2.99 M/mm3 (3.65-5.03); Red Cell Distribution Width 13.6 % (13.2-15.2)
[2018-08-29 07:16] LABS: BUN/Creatinine Ratio 18; Blood Urea Nitrogen 7 mg/dL (7-17); Hemolysis Index 4
--- NOTE | 2018-08-29 08:05 | Progress Note ---
Assessment and Plan Assessment and plan: Patient is 63 yo woman from [facility] with a plethora of serious co- morbidities including HD, MR and severe malnutrition, who presented to [facility] ED with dark coffee ground emesis that started this morning. Patien was unstable with hypotension but had a DNR form from the [place]. RN called the facility and they provided little info other than what listed in her records. Patient has a diagnosis of MR thus not able to help with the history and exam. (1) Upper GI bleed-etiology- most likely 2/2 erosive esophagitis per GI (2) Acute COPD (chronic obstructive pulmonary disease) (3) Severe Malnutrition, bmi 12.8 (4) Hypertension (5) Schizophrenia (6) [place] disease (7) Hypocalcemia DNR according to [place] records. GI has evaluated, conservative measures; therefore, will consult Hospice, bmi 12.8 and she unable to eat with the esophagitis and no PEG per report. History Interval history: Patient was seen and examined. Follow-up on current diagnosis of Coffee ground emesis. Overnight uneventful. Patient nonverbal mostly. Imaging, nursing note, chart, labs and old chart reviewed. Hospitalist Physical - Physical exam Narrative exam: Gen:chronic ill appearing and disable, bmi 12.8 HEENT:NCAT, EOMI, PERRL, OP missing teeth Neck:supple, no adenopathy, no thyromegaly, no JVD CVS/Heart:RRR, normal S1S2, pulses present bilaterally Chest/Lungs:CTA B, Symmetrical chest expansion, good air entry bilaterally GI/Abdomen:soft, NTND, good bowel sounds, no guarding or rebound /Bladder:no suprapubic tenderness, no CVA or paraspinal tenderness Extermity/Skin:atrophic limbs MSK:contractures x 4 Neuro:CN 2-12 grossly intact, doesn't follow commands, quadriplegic Psych:Mentally challenged - Constitutional Vitals: Temp Pulse Resp BP Pulse Ox 97.6 F 65 16 98/51 94 08/29/18 06:06 08/29/18 06:06 08/29/18 06:06 08/29/18 06:06 08/29/18 06:06 General appearance: Present: no acute distress, cachectic, other Results - Labs CBC & Chem 7: 08/29/18 05:23 08/29/18 05:23 Labs: Laboratory Last Values WBC 5.6 K/mm3 (4.5-11.0) 08/29/18 05:23 RBC 2.99 M/mm3 (3.65-5.03) L 08/29/18 05:23 Hgb 9.0 gm/dl (10.1-14.3) L 08/29/18 05:23 Hct 26.7 % (30.3-42.9) L 08/29/18 05:23 MCV 89 fl (79-97) 08/29/18 05:23 MCH 30 pg (28-32) 08/29/18 05:23 MCHC 34 % (30-34) 08/29/18 05:23 RDW 13.6 % (13.2-15.2) 08/29/18 05:23 Plt Count 280 K/mm3 (140-440) 08/29/18 05:23 Lymph % (Auto) 23.1 % (13.4-35.0) 08/28/18 07:02 [place] % (Auto) 7.1 % (0.0-7.3) 08/28/18 07:02 Eos % (Auto) 1.4 % (0.0-4.3) 08/28/18 07:02 Baso % (Auto) 0.3 % (0.0-1.8) 08/28/18 07:02 Lymph # 1.5 K/mm3 (1.2-5.4) 08/28/18 07:02 [place] # 0.5 K/mm3 (0.0-0.8) 08/28/18 07:02 Eos # 0.1 K/mm3 (0.0-0.4) 08/28/18 07:02 Baso # 0.0 K/mm3 (0.0-0.1) 08/28/18 07:02 Seg Neutrophils % 68.1 % (40.0-70.0) 08/28/18 07:02 Seg Neutrophils # 4.4 K/mm3 (1.8-7.7) 08/28/18 07:02 PT 13.4 Sec. (12.2-14.9) 08/27/18 08:36 INR 0.96 (0.87-1.13) 08/27/18 08:36 APTT 31.4 Sec. (24.2-36.6) 08/27/18 08:36 Sodium 148 mmol/L (137-145) H 08/29/18 05:23 Potassium 3.8 mmol/L (3.6-5.0) 08/29/18 05:23 Chloride 114.8 mmol/L (98-107) H 08/29/18 05:23 Carbon Dioxide 23 mmol/L (22-30) 08/29/18 05:23 Anion Gap 14 mmol/L 08/29/18 05:23 BUN 7 mg/dL (7-17) 08/29/18 05:23 Creatinine 0.4 mg/dL (0.7-1.2) L 08/29/18 05:23 Estimated GFR > 60 ml/min 08/29/18 05:23 BUN/Creatinine Ratio 18 % 08/29/18 05:23 Glucose 104 mg/dL (65-100) H 08/29/18 05:23 Hemoglobin A1c 5.2 % (4-6) 08/27/18 14:20 Calcium 8.0 mg/dL (8.4-10.2) L 08/29/18 05:23 Total Bilirubin 0.30 mg/dL (0.1-1.2) 08/27/18 08:31 Direct Bilirubin < 0.2 mg/dL (0-0.2) 08/27/18 08:31 Indirect Bilirubin 0.1 mg/dL 08/27/18 08:31 AST 16 units/L (5-40) 08/27/18 08:31 ALT 11 units/L (7-56) 08/27/18 08:31 Alkaline Phosphatase 83 units/L (35-129) 08/27/18 08:31 Total Protein 6.5 g/dL (6.3-8.2) 08/27/18 08:31 Albumin 3.1 g/dL (3.9-5) L 08/27/18 08:31 Albumin/Globulin Ratio 0.9 % 08/27/18 08:31 Active Medications - Current Medications Current Medications: Generic Name Dose Route Start Last Admin Trade Name Freq PRN Reason Stop Dose Admin Acetaminophen 650 mg 08/27/18 13:25 Tylenol PO Q4H PRN Pain MILD(1-3)/Fever >100.5/[place]ANKLIN Hydromorphone HCl 0.25 mg 08/27/18 13:25 Dilaudid IV Q3H PRN Pain, Moderate (4-6) Dextrose/Sodium Chloride 1,000 mls @ 75 mls/hr 08/27/18 15:00 08/28/18 17:56 D5ns IV 75 mls/hr DIRECT EUGENIO Administration Ondansetron HCl 4 mg 08/27/18 13:25 Zofran IV Q8H PRN Nausea And Vomiting Pantoprazole Sodium 40 mg 08/28/18 10:00 08/28/18 22:56 Protonix IV 40 mg BID EUGENIO Administration Sodium Chloride 10 ml 08/27/18 15:00 08/28/18 22:00 Sodium Chloride Flush Syringe 10 Ml IV 10 ml BID EUGENIO Administration Sodium Chloride 10 ml 08/27/18 13:25 Sodium Chloride Flush Syringe 10 Ml IV PRN PRN LINE FLUSH Nutrition/Malnutrition Assess - Dietary Evaluation Nutrition/Malnutrition Findings: Nutrition Notes Start: 08/28/18 16:16 Freq: Status: Active Protocol: Document 08/28/18 16:16 RM (Rec: 08/28/18 16:21 RM [id number]) Nutrition Notes Need for Assessment generated from: MD Order Initial or Follow up Assessment Current Diagnosis COPD,Hypertension Other Pertinent Diagnosis Coffee ground emesis, Schizophrenia, Mental retardation, [place] Current Diet Full liquid Labs/Tests Reviewed Pertinent Medications Reviewed Height 5 ft 5 in Weight 34.9 kg [place] Body Weight (kg) 56.81 BMI 12.8 Subjective/Other Information Consulted for "pt needs oral supplement." Pt from [place]. NPO in place earlier today. Full liquid diet ordered later today. Pt confused at time of visit. Noted temporal wasting. Burn Absent Trauma Absent #1 Nutrition Diagnosis Malnutrition Etiology coffee ground emesis, mental retardation As Evidenced by Signs and Symptoms pt BMI of 12.8, temporal wasting Is patient on ventilator? No Is Patient Ambulatory and/or Out of Bed No REE-([facility]-confined to bed) 1085.580 Kcal/Kg value to use for calculation 40 Approximate Energy Requirements Using 1396 kcal/Kg Calculation Used for Recommendations Kcal/kg Additional Notes Protein Needs: 42-52g (1.2-1. 5g/kg) Fluid Needs: 1 ml/kcal Nutrition Intervention Change Diet Order: Advance diet when medically able Add Supplement/Snack (indicate name/kcal Ensure Enlive 1 daily /protein ) Provides kCal: 350 Provides Protein (gm) 20 Goal #1 Meet at least 75% of calorie and protien needs via PO and ONS intakes Goal #2 Wt gain/maintenance Anticipated Discharge Needs: Unable to determine at this time Follow-Up By: 08/30/18 Additional Comments Follow for PO and ONS intakes
[2018-08-29] MEDS: SODIUM CHLORIDE FLUSH SYRINGE 10 ML IV SCH (13:14)
[2018-08-29] MEDS: PROTONIX IV SCH (13:14)
--- NOTE | 2018-08-29 15:03 | Discharge Summary ---
Providers - Providers Date of Admission: 08/27/18 12:58 Date of discharge: 08/29/18 Attending physician: EKATERINA BOSS 08/27/18 13:25 Consult to Physician [CONS] Routine Comment: Consulting Provider: LOGAN ROMANO Physician Instructions: Reason For Exam: GI bleed 08/27/18 14:33 Consult to Dietitian/Nutrition [CONS] Routine Physician Instructions: Reason For Exam: Reason for Consult: Pt needs oral supplement Primary care physician: RODRIGUEZ SANTIAGO Hospitalization Condition: Stable Hospital course: Patient is 63 yo woman from [facility] with a plethora of serious co- morbidities including HD, MR and severe malnutrition, who presented to [facility] ED with dark coffee ground emesis that started this morning. Patien was unstable with hypotension but had a DNR form from the [place]. RN called the facility and they provided little info other than what listed in her records. Patient has a diagnosis of MR thus not able to help with the history and exam. (1) Upper GI bleed-etiology- most likely 2/2 erosive esophagitis per GI (2) Acute COPD (chronic obstructive pulmonary disease) (3) Severe Malnutrition, bmi 12.8 (4) Hypertension (5) Schizophrenia (6) [place] disease (7) Hypocalcemia DNR according to [place] records. GI has evaluated, conservative measures; therefore, will consult Hospice, bmi 12.8 and she unable to eat with the esophagitis and no PEG per report. Disposition: DC-01 TO HOME OR SELFCARE Time spent for discharge: 34 minutes Core Measure Documentation - Palliative Care Palliative Care/ Comfort Measures: Not Applicable - Core Measures Any of the following diagnoses?: none - VTE Discharge Requirements Deep Vein Thrombosis/Pulmonary Embolism Present on Admission: No Has pt received <5 days of overlap therapy or INR<2.0: No Anticoagulant overlap therapy prescribed at discharge: No Contraindication No Overlap Therapy order at DC: Not Indicated Exam - Physical Exam Narrative exam: Gen:chronic ill appearing and disable, bmi 12.8 HEENT:NCAT, EOMI, PERRL, OP missing teeth Neck:supple, no adenopathy, no thyromegaly, no JVD CVS/Heart:RRR, normal S1S2, pulses present bilaterally Chest/Lungs:CTA B, Symmetrical chest expansion, good air entry bilaterally GI/Abdomen:soft, NTND, good bowel sounds, no guarding or rebound /Bladder:no suprapubic tenderness, no CVA or paraspinal tenderness Extermity/Skin:atrophic limbs MSK:contractures x 4 Neuro:CN 2-12 grossly intact, doesn't follow commands, quadriplegic Psych:Mentally challenged - Constitutional Vitals: Temp Pulse Resp BP Pulse Ox 97.6 F 59 L 18 117/59 100 08/29/18 12:12 08/29/18 12:12 08/29/18 12:12 08/29/18 12:12 08/29/18 12:12 Plan Activity: fall precautions Diet: advance as tolerated Special Instructions: other (hospice inpatient) Follow up with: RODRIGUEZ SANTIAGO MD [Primary Care Provider] - 3-5 Days Forms: Accompanied Note
[2018-08-29 17:23] VITALS: BP 101/53
== END 2018-08-29 16:30 | DRG 380 ==
LOC: ED 07:53 → 3A 12:58
PROVIDERS: ADMIT Internal Medicine; ATTEND Internal Medicine
DX: K22.11 Ulcer of esophagus with bleeding (principal); E43 Unspecified severe protein-calorie malnutrition; G10 Huntington's disease; Z68.1 Body mass index [BMI] 19.9 or less, adult; K29.01 Acute gastritis with bleeding; F20.9 Schizophrenia, unspecified; F32.9 Major depressive disorder, single episode, unspecified; F79 Unspecified intellectual disabilities; I10 Essential (primary) hypertension; R62.7 Adult failure to thrive; E87.6 Hypokalemia; Z66 Do not resuscitate
CPT/HCPCS: 36415; 80048; 80076; 83036; 85014; 85018; 85025; 85027; 85610; 85730; 87116; G0378; C9113; J0610; J3480; J7030; J7042